=== PATIENT | male | born 1950 | race Caucasian/White ===

== ENCOUNTER 2020-12-25 18:27 | Inpatient (IN) | payer MEDICARE, SELFPAY ==
--- NOTE | ~2020-12-25 | CT_ITS ---
EXAMINATION: CT ABDOMEN AND PELVIS WITH CONTRAST CLINICAL INFORMATION: Abdomen pain. History of diverticulitis COMPARISON: None TECHNIQUE: Multidetector volumetric images were obtained from the superior aspect of the liver through the pubic symphysis following administration 85 mL of Omnipaque 350 intravenous contrast. Sagittal and coronal reformatted images were obtained on the technologist's workstation. Oral contrast: No This CT examination was performed using dose optimization techniques as appropriate, variously including the following: *Automated exposure control *Adjustment of mA and/or kV according to patient size (this includes techniques or standardized protocols for targeted exams where dose is matched to indication/reason for exam; i.e. extremities or head) *Use of iterative reconstruction technique DLP: 912 mGy-cm FINDINGS: LUNG BASES: There is some partially calcified left pleural plaque. Small amount of nonspecific pericardial fluid or thickening. There is coronary calcification. LIVER, GALLBLADDER, AND BILIARY TREE: No suspicious abnormality in the liver. There is no opaque gallstone. There is no biliary dilation. PANCREAS: Some fatty replacement. No suspicious mass SPLEEN: Within normal limits ADRENAL GLANDS: No suspicious abnormality KIDNEYS AND URETERS: Limited by motion. No definite dilation of the urinary collecting system. There are at least 3 small cysts in the right kidney which do not require further evaluation. There is an exophytic 7.5 cm cyst arising from the ventral left kidney. There is trace calcification along the upper wall. Bosniak 2F. BLADDER: There is a balloon catheter present. The bladder wall is thickened. GASTROINTESTINAL TRACT: There is a large amount of fecal residue distending the rectum. The rectal wall is thickened. There is perirectal fat stranding. This could reflect stercoral colitis. There is extensive semisolid material within the distal colon. There are some colonic diverticula. There is fluid throughout the colon which suggests dysfunction. There is no definite CT evidence of acute diverticulitis. The appendix is normal. There is no significant small bowel dilation. The stomach is distended. ABDOMINAL WALL: No significant hernia is appreciated. LYMPH NODES: There are no measurably enlarged abdominal or pelvic lymph nodes. There is no free intraperitoneal fluid. There is no pneumoperitoneum. VASCULAR: There is no abdominal aortic aneurysm. There is extensive atherosclerosis. There is at least moderate narrowing of the SMA. The portal vein enhances. Plaque near the origin of the right renal artery. PELVIC VISCERA: There is a coarse calcification near the bladder outlet. Difficult to determine if this is within the prostate or the bladder. I favor the former. OSSEOUS STRUCTURES: Marked osteopenia. Rigid spine with ankylosis in the visualized lower thoracic region. There is proliferative change of the ventral aspect at T12/L1 with some gas ventrally. CT/CT abdomen pelvis w con IMPRESSION: A fecal bolus distends the rectum and the rectal wall is thickened and there is some perirectal fat stranding. This could be related to stercoral colitis. No definite specific evidence of acute diverticulitis or abscess. 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 Bosniak 2F left renal cyst. This does not require any further evaluation. Calcification near the bladder outlet may be within the prostate.
[2020-12-25 18:40] VITALS: BMI 22.4
--- NOTE | 2020-12-25 18:42 | ED_ITS ---
HPI - Abdominal Pain General Chief Complaint: Abdominal Pain Stated Complaint: abd pain Time Seen by Provider: 12/25/20 18:42 Source: patient and EMS Mode of arrival: EMS Limitations: no limitations History of Present Illness HPI narrative: 70 yo male with hx of afib on AC therapy, indwelling grimes, ataxia, HTN, HLD, hx of diverticulitis c/o abdominal pain and constipation for the last 3 days at this time denies vomiting and diarrhea, no fevers at SNF reported, hematuria noted in grimes bag elicited complaint: abdominal pain Pertinent past history: diverticulitis Onset (ago): day(s) (3) Pain Consistency: constant Location: diffuse Severity: moderate Quality: cramping and aching Radiation: none Migration to: no migration Exacerbating factors: movement Relieving factors: nothing Context: history of similar episodes Associated symptoms: nausea and constipation Related Data Allergies Allergy/AdvReac Type Severity Reaction Status Date / Time erythromycin base Allergy Unknown Unknown Verified 12/25/20 18:51 lisinopril Allergy Unknown Unknown Verified 12/25/20 18:51 Review of Systems Review of Systems Constitutional : No Weight loss, No Fever, pos Chills ENT/Mouth : No sore throat, No Rhinorrhea Eyes: No Swelling, No Redness Cardiovascular : No Chest Pain, No SOB, NoEdema Respiratory : No Cough, No Sputum, No Wheezing Gastrointestinal : Positive Nausea, no Vomiting, no Diarrhea, positive abdominal Pain, No Hematochezia, No Melena Genitourinary : No Dysuria, No Urinary Frequency, pos Hematuria, No Urgency Musculoskeletal : No joint pain, No Myalgias, No Joint Swelling Skin : No Skin Lesions, No rash Neuro : No Weakness, No Numbness, No Dizziness, No Headache Psych : No Anxiety/Panic, No Depression Heme/Lymph: No Bruising, No Lymphadenopathy Endocrine : No Polyuria, No Polydipsia All other systems reviewed and are negative. Physical Exam Vital Signs: Vital Signs: Last Vital Signs Temp 98.4 F 12/25/20 21:29 Pulse 91 12/25/20 21:29 Resp 18 12/25/20 21:29 BP 123/78 12/25/20 21:29 Pulse Ox 100 12/25/20 21:29 Body Mass Index 22.4 Appearance: Alert. Oriented X3. No acute distress. Anxious Eyes: Pupils equal, round and reactive to light. ENT: Pharynx normal. Neck: Normal inspection. Neck supple. CVS: Normal heart rate and rhythm. Pulses normal. Respiratory: No respiratory distress. Breath sounds normal. Abdomen: Soft and moderate lower abdominal ttp no rebound or guarding Rectal: brown stool, soft impaction : hematuria in cath bag Skin: Skin warm and dry. Normal skin color. Normal skin turgor. Extremities: No lower extremity edema. No calf ttp Neuro: Oriented X 3. No motor deficit. No sensory deficit. Course Course Course Narrative: 2500 cc bolus ordered for lactic acidosis, empiric zosyn ordered as well lactic acid cleared, repeat dilaudid for pain, discussion with Dr. Schneider she is aware, plan to admit at this time Dr. Schneider aware will follow along MDM - Abdominal Pain MDM Narrative Medical decision making narrative: 70 yo female with hx of diverticulitis, chronic grimes, here with lower abdominal pain and constipation likely impaction at this time will need labs, cultures, lactic acid, CT scan for obstruction/dive rticulitis dispo per results and findings. Differential Diagnosis Differential diagnosis: Likely abdominal pain, constipation, diverticulitis, renal colic and small bowel obstruction Lab Data Result diagrams: 12/25/20 19:15 12/25/20 19:15 Labs: Lab Results 12/25/20 12/25/20 12/25/20 Range/Units 19:15 19:15 19:15 WBC 13.4 H (4.8-10.8) X10*3/uL RBC 5.07 (4.60-5.80) X10*6/uL Hgb 16.0 (14.0-18.0) g/dl Hct 47.1 (42-52) % MCV 92.9 (80-98) fL MCH 31.6 (27.0-33.0) pg MCHC 34.0 (31.0-36.0) g/dl RDW 12.9 (11.0-16.0) % Plt Count 312 (160-400) X10*3/uL MPV 8.8 L (9.4-12.4) fL Immature Gran % (Auto) 0.3 (0.0-0.4) % Neut % (Auto) 67.1 (45-73) % Lymph % (Auto) 24.1 (20-40) % [place] % (Auto) 7.1 (2-11) % Eos % (Auto) 1.0 (0-4) % Baso % (Auto) 0.4 (0-2) % Lymph # (Auto) 3.2 (1.2-4.9) X10*3/uL [place] # (Auto) 1.0 (0.1-1.2) X10*3/uL Eos # (Auto) 0.1 (0.0-0.4) X10*3/uL Baso # (Auto) 0.1 (0.0-0.2) X10*3/uL Abs Immat Gran (auto) 0.04 H (0.00-0.03) X10*3/uL Absolute Neuts (auto) 9.0 H (2.0-8.3) X10*3/uL Absolute Nucleated RBC 0.000 (0.0-0.012) X10*3/uL Nucleated RBC % (auto) 0.0 (0.0-0.2) /100WBC PT (10.8-13.0) SEC INR (0.9-1.1) APTT (24.1-38.0) SEC Sodium 144 (135-145) mmol/L Potassium 4.7 (3.3-5.1) mmol/L Chloride 106 (96-108) mmol/L Carbon Dioxide 22 (22-29) mmol/L Anion Gap 21 H (12-20) BUN 6 L (9-16) mg/dL Creatinine 0.98 (0.5-1.4) mg/dL Estim Creat Clear Calc 77.5 Estimated GFR > 60 Random Glucose 136 H (60-115) mg/dL Lactic Acid (0.5-2.0) mmol/L Lactic Acid Fup @ 2Hr (0.5-2.0) mmol/L Calcium 11.6 H (8.4-10.2) mg/dL Magnesium (1.6-2.6) mg/dL Total Bilirubin (0.0-1.0) mg/dL Direct Bilirubin (0.0-0.5) mg/dL AST (5-37) U/L ALT (0-40) U/L Alkaline Phosphatase (39-117) U/L Troponin I High Sens (<3.5-35.0) ng/L Total Protein (6.5-8.0) g/dL Albumin (3.5-5.0) g/dL Lipase (8-78) U/L Urine Color Urine Appearance Urine pH (5.0-8.0) Ur Specific [place] (1.005-1.025) Urine Protein (NEG-TRACE) MG/DL Urine Glucose (UA) (NEG) MG/DL Urine Ketones (NEG) MG/DL Urine Blood (NEG) Urine Nitrite (NEG) Ur Leukocyte Esterase (NEG) Urine RBC (0) /HPF Urine WBC (0-4) /HPF Ur Squamous Epith Cells /LPF Calcium Oxalate Crystal /LPF Triple Phos Crystals /LPF Amorphous Sediment /LPF Urine Bacteria /LPF COVID-19 ([facility]) Negative (Negative) COVID-19 Clin Com See Note 12/25/20 12/25/20 12/25/20 Range/Units 19:15 19:15 19:15 WBC (4.8-10.8) X10*3/uL RBC (4.60-5.80) X10*6/uL Hgb (14.0-18.0) g/dl Hct (42-52) % MCV (80-98) fL MCH (27.0-33.0) pg MCHC (31.0-36.0) g/dl RDW (11.0-16.0) % Plt Count (160-400) X10*3/uL MPV (9.4-12.4) fL Immature Gran % (Auto) (0.0-0.4) % Neut % (Auto) (45-73) % Lymph % (Auto) (20-40) % [place] % (Auto) (2-11) % Eos % (Auto) (0-4) % Baso % (Auto) (0-2) % Lymph # (Auto) (1.2-4.9) X10*3/uL [place] # (Auto) (0.1-1.2) X10*3/uL Eos # (Auto) (0.0-0.4) X10*3/uL Baso # (Auto) (0.0-0.2) X10*3/uL Abs Immat Gran (auto) (0.00-0.03) X10*3/uL Absolute Neuts (auto) (2.0-8.3) X10*3/uL Absolute Nucleated RBC (0.0-0.012) X10*3/uL Nucleated RBC % (auto) (0.0-0.2) /100WBC PT 17.3 H (10.8-13.0) SEC INR 1.5 H (0.9-1.1) APTT 45.3 H (24.1-38.0) SEC Sodium (135-145) mmol/L Potassium (3.3-5.1) mmol/L Chloride (96-108) mmol/L Carbon Dioxide (22-29) mmol/L Anion Gap (12-20) BUN (9-16) mg/dL Creatinine (0.5-1.4) mg/dL Estim Creat Clear Calc Estimated GFR Random Glucose (60-115) mg/dL Lactic Acid 7.8 H* (0.5-2.0) mmol/L Lactic Acid Fup @ 2Hr (0.5-2.0) mmol/L Calcium (8.4-10.2) mg/dL Magnesium 2.7 H (1.6-2.6) mg/dL Total Bilirubin 0.9 (0.0-1.0) mg/dL Direct Bilirubin 0.3 (0.0-0.5) mg/dL AST 44 H (5-37) U/L ALT 31 (0-40) U/L Alkaline Phosphatase 147 H (39-117) U/L Troponin I High Sens (<3.5-35.0) ng/L Total Protein 7.4 (6.5-8.0) g/dL Albumin 4.1 (3.5-5.0) g/dL Lipase 24 (8-78) U/L Urine Color Urine Appearance Urine pH (5.0-8.0) Ur Specific [place] (1.005-1.025) Urine Protein (NEG-TRACE) MG/DL Urine Glucose (UA) (NEG) MG/DL Urine Ketones (NEG) MG/DL Urine Blood (NEG) Urine Nitrite (NEG) Ur Leukocyte Esterase (NEG) Urine RBC (0) /HPF Urine WBC (0-4) /HPF Ur Squamous Epith Cells /LPF Calcium Oxalate Crystal /LPF Triple Phos Crystals /LPF Amorphous Sediment /LPF Urine Bacteria /LPF COVID-19 ([facility]) (Negative) COVID-19 Clin Com 12/25/20 12/25/20 12/25/20 Range/Units 19:15 19:15 21:54 WBC (4.8-10.8) X10*3/uL RBC (4.60-5.80) X10*6/uL Hgb (14.0-18.0) g/dl Hct (42-52) % MCV (80-98) fL MCH (27.0-33.0) pg MCHC (31.0-36.0) g/dl RDW (11.0-16.0) % Plt Count (160-400) X10*3/uL MPV (9.4-12.4) fL Immature Gran % (Auto) (0.0-0.4) % Neut % (Auto) (45-73) % Lymph % (Auto) (20-40) % [place] % (Auto) (2-11) % Eos % (Auto) (0-4) % Baso % (Auto) (0-2) % Lymph # (Auto) (1.2-4.9) X10*3/uL [place] # (Auto) (0.1-1.2) X10*3/uL Eos # (Auto) (0.0-0.4) X10*3/uL Baso # (Auto) (0.0-0.2) X10*3/uL Abs Immat Gran (auto) (0.00-0.03) X10*3/uL Absolute Neuts (auto) (2.0-8.3) X10*3/uL Absolute Nucleated RBC (0.0-0.012) X10*3/uL Nucleated RBC % (auto) (0.0-0.2) /100WBC PT (10.8-13.0) SEC INR (0.9-1.1) APTT (24.1-38.0) SEC Sodium (135-145) mmol/L Potassium (3.3-5.1) mmol/L Chloride (96-108) mmol/L Carbon Dioxide (22-29) mmol/L Anion Gap (12-20) BUN (9-16) mg/dL Creatinine (0.5-1.4) mg/dL Estim Creat Clear Calc Estimated GFR Random Glucose (60-115) mg/dL Lactic Acid (0.5-2.0) mmol/L Lactic Acid Fup @ 2Hr 1.4 (0.5-2.0) mmol/L Calcium (8.4-10.2) mg/dL Magnesium (1.6-2.6) mg/dL Total Bilirubin (0.0-1.0) mg/dL Direct Bilirubin (0.0-0.5) mg/dL AST (5-37) U/L ALT (0-40) U/L Alkaline Phosphatase (39-117) U/L Troponin I High Sens 7.7 (<3.5-35.0) ng/L Total Protein (6.5-8.0) g/dL Albumin (3.5-5.0) g/dL Lipase (8-78) U/L Urine Color RED Urine Appearance TURBID Urine pH 8.5 H (5.0-8.0) Ur Specific [place] 1.015 (1.005-1.025) Urine Protein 2+ H (NEG-TRACE) MG/DL Urine Glucose (UA) NEG (NEG) MG/DL Urine Ketones NEG (NEG) MG/DL Urine Blood 3+ H (NEG) Urine Nitrite NEG (NEG) Ur Leukocyte Esterase NEG (NEG) Urine RBC TNTC H (0) /HPF Urine WBC 1-4 (0-4) /HPF Ur Squamous Epith Cells TRACE /LPF Calcium Oxalate Crystal 1+ /LPF Triple Phos Crystals TRACE /LPF Amorphous Sediment 1+ /LPF Urine Bacteria TRACE /LPF COVID-19 ([facility]) (Negative) COVID-19 Clin Com ECG Data Attestation: I personally reviewed and interpreted this ECG as follows: ECG interpretation date: 12/25/20 ECG interpretation time: 20:06 Interpretation: Rate: 107 Rhythm: sinus tachycardia [place]: left Normal P waves. Normal LYDIA. Normal QRS complex. ST T wave : nonspecific. slight ST depression V4-V6 qTC: normal prior studies: none The study has been interpreted contemporaneously by me. . Discharge Plan Discharge Clinical Impression: Fecal impaction in rectum, Colitis, Acidosis, lactic Abdominal pain Qualifiers: Abdominal location: generalized Qualified Code(s): R10.84 - Generalized abdomin al pain Constipation Qualifiers: Constipation type: other constipation type Qualified Code(s): K59.09 - Other constipation Patient Disposition: Admitted As Inpatient [facility] Past Medical History Attestation statement: The following information was validated with the patient. Source: old records reviewed Medical History Afib Chronic indwelling Grimes catheter Diverticulitis Esophagitis Falls Migraine Weakness Social History Social History Alcohol intake: former Smoking Status: Former smoker Use of substances other than those prescribed or required for medical reasons: No Advance Directives: No Advance Directives Information Provided: No
[2020-12-25 18:50] VITALS: BP 122/83; PULSE 112; RESP 16; TEMP 37.7; O2SAT 98
--- NOTE | 2020-12-25 18:52 | ECG_ITS ---
Test Reason : ABD PAIN Blood Pressure : / mmHG Vent. Rate : 107 BPM Atrial Rate : 107 BPM P-R Int : 170 ms QRS Dur : 090 ms QT Int : 356 ms P-R-T Axes : 061 -60 104 degrees QTc Int : 475 ms Sinus tachycardia Left axis deviation ST & T wave abnormality, consider inferior ischemia Abnormal ECG No previous ECGs available Referred By: Fiorella Rogers Electronically Signed By:CINTHIA MERRILL MD
[2020-12-25 19:23] LABS: MANUAL DIFF FLAG NO
[2020-12-25] MEDS: Acetaminophen 325 MG TABLET 650 MG PO (19:25)
[2020-12-25 19:26] LABS: Basophils Absolute Auto 0.1 X10*3/uL (0.0-0.2); Basophils Percent Auto 0.4 % (0-2); Eosinophils Absolute Auto 0.1 X10*3/uL (0.0-0.4); Hematocrit 47.1 % (42-52); Imm Gran Abs Auto 0.04 X10*3/uL (0.00-0.03); Imm Gran Pct Auto 0.3 % (0.0-0.4); Lymphocytes Absolute Auto 3.2 X10*3/uL (1.2-4.9); Lymphocytes Percent Auto 24.1 % (20-40); Mean Corpuscular Hemoglobin 31.6 pg (27.0-33.0); Mean Corpuscular Volume 92.9 fL (80-98); Mean Platelet Volume 8.8 fL (9.4-12.4); Monocytes Percent Auto 7.1 % (2-11); Neutrophils Percent Auto 67.1 % (45-73); Platelet Count 312 X10*3/uL (160-400); Red Blood Count 5.07 X10*6/uL (4.60-5.80); Red Cell Distribution Width 12.9 % (11.0-16.0); White Blood Count 13.4 X10*3/uL (4.8-10.8)
[2020-12-25] MEDS: 0.9 % Sodium Chloride 500 ML IV (19:26)
[2020-12-25] MEDS: ondansetron HCL 4 MG/2 ML VIAL IVPUSH (19:26)
[2020-12-25 19:30] LABS: INTERNATIONAL NORM RATIO 1.5 (0.9-1.1); Prothrombin Time 17.3 SEC (10.8-13.0)
[2020-12-25 19:44] LABS: Partial Thromboplastin Time 45.3 SEC (24.1-38.0)
[2020-12-25 19:51] LABS: Alanine Aminotransferase 31 U/L (0-40); Albumin Level 4.1 g/dL (3.5-5.0); Alkaline Phosphatase 147 U/L (39-117); Aspartate Amino Transferase 44 U/L (5-37); Bilirubin Direct 0.3 mg/dL (0.0-0.5); Bilirubin Total 0.9 mg/dL (0.0-1.0); Lipase 24 U/L (8-78); Magnesium 2.7 mg/dL (1.6-2.6); Total Protein 7.4 g/dL (6.5-8.0)
[2020-12-25 19:59] LABS: Anion Gap 21 (12-20); Blood Urea Nitrogen 6 mg/dL (9-16); Carbon Dioxide 22 mmol/L (22-29); Chloride 106 mmol/L (96-108); Creatinine Clr Calc Pharmacy 77.5; Estimated Glomerular Filt Rate > 60; Glucose Random 136 mg/dL (60-115); Potassium 4.7 mmol/L (3.3-5.1); Sodium 144 mmol/L (135-145)
[2020-12-25 20:01] LABS: Glucose Urine UA NEG (NEG); Leukocyte Esterase Urine NEG (NEG); Nitrite Urine NEG (NEG); PH 8.5 (5.0-8.0); Specific Gravity - Urine 1.015 (1.005-1.025); Urine Blood 3+ (NEG); Urine Ketones NEG (NEG)
[2020-12-25 20:03] LABS: Appearance Urine TURBID; Color Urine RED; Lactic Acid 7.8 mmol/L (0.5-2.0); Urine Protein 2+ MG/DL (NEG-TRACE)
[2020-12-25 20:04] LABS: Amorphous Sediment Urine 1+ /LPF; Bacteria Urine TRACE /LPF; Calcium Oxalate Crystals Urine 1+ /LPF; RBC Urine TNTC /HPF (0); Squamous Epithelial Cell Urine TRACE /LPF; Triple Phosphate Crystal Urine TRACE /LPF
[2020-12-25 20:06] LABS: Calcium 11.6 mg/dL (8.4-10.2)
[2020-12-25] MEDS: 0.9 % Sodium Chloride 1,000 ML 999 ML IVCONT ×2 (20:15)
[2020-12-25] MEDS: Piperacillin Sodium/Tazobactam 3.375 GM in 0.9 % Sodium Chloride 50 ML IV (20:15)
[2020-12-25] MEDS: Morphine Sulfate 2 MG/ML CARTRIDGE IVPUSH (20:15)
[2020-12-25 20:18] VITALS: BP 116/69; PULSE 99; RESP 16; TEMP 36.8; O2SAT 100
[2020-12-25 20:40] LABS: Troponin-I High Sensitivity 7.7 ng/L (<3.5-35.0)
[2020-12-25 20:42] LABS: COVID-19 Test Negative (Negative)
[2020-12-25 21:21] LABS: Reflex Lactate? Lactic Acid Added
[2020-12-25] MEDS: iohexoL 350 MG/ML 100 ML INFUS..BTL 85 ML IV (21:27)
[2020-12-25 21:29] VITALS: BP 123/78; PULSE 91; RESP 18; TEMP 36.9; O2SAT 100
[2020-12-25] MEDS: HYDROmorphone HCl 0.5 MG/0.5 ML SYRINGE IVPUSH (21:52)
[2020-12-25 22:21] LABS: ~Lactic Acid-LAB USE ONLY 1.4 mmol/L (0.5-2.0)
--- NOTE | 2020-12-25 23:53 | PM.IMHP ---
History of Present Illness Date of Service: 12/25/20 Chief Complaint: constipation, GI pain 70 yo with pmhx AFib, diverticulitis, chronic indwelling Grimes catheter secondary to urinary retention, peripheral neuropathy who presents to the hospital with constipation. Patient's at bedside who helped with given history. Patient reports that he started having abdominal pain, diffuse, worse on the left side, and reports tana the has not had a proper BM since the 20 of December. according to the pts , pt was admitted to [facility] for about 15 days for diverticulitis with resp complications. according to the , pt has chronic urinary retention for the past 1 month, he was trying strain today to push his bm, and started seeing blood in the grimes. pt is having chronic SOB, with no cough, no sputum production. he has no fever, no chills, no chest pain, no palpitations, he has nausea with no vomiting, no lower extremity edema. pt not on any narcotics although according to med rec patient is on Percocet Of note [facility] from [facility] because he has been there for 2 months due to peripheral neuropathy, difficulty ambulating as a result and weakness. On arrival to the ED patient hemodynamically stable with no significant abnormal vitals except for heart rate of 112 which normalized Labs are significant for WBC count of 13.4, CT of the brain 3, INR of 1.5, PTT of 45.3, BUN of 6, creatinine of 0.98, lactic acid of 7.8, which improved to 1.4 after fluids, magnesium 2.7, calcium of 11.6, AST of 44, ALT of 31, alk-phos of 147, UA that is positive for blood, Abdomen CT shows a fecal bolus that distends the rectum and the rectal wall that is thickened with some perirectal fat stranding. Possible stercoral colitis. No acute diverticulitis or abscess. Past medical history as below and confirmed as patient Review of Systems Review of Systems: Yes all other systems are reviewed and are negative FOR[facility]LY [facility], [facility] Medical History Afib Chronic indwelling Grimes catheter Diverticulitis Esophagitis [place] Migraine Weakness Social History Household Members: Spouse Housing: Unknown / Unable to assess Unable to assess alcohol history related to: Unable to respond Alcohol intake: former Smoking Status: Former smoker Use of substances other than those prescribed or required for medical reasons: Unknown Advance Directives: No Advance Directives Information Provided: No Do you have thoughts of harming others: None Do you have a plan to hurt others: No Plan Recently lost weight without trying: Unsure Nutrition Risks: No Nutritional Risk Poor oral hygiene: No Meds Allergies Allergy/AdvReac Type Severity Reaction Status Date / Time erythromycin base Allergy Unknown Unknown Verified 12/25/20 18:51 lisinopril Allergy Unknown Unknown Verified 12/25/20 18:51 Active Medications: Current Medications Generic Name Dose Route Start Last Admin Trade Name Freq PRN Reason Stop Dose Admin Pharmacy Consult 1 each 12/25/20 18:51 Consult Rx Perform Med Rec MISCELLANE ONCE PRN Consult order Home Medications Medication Instructions Recorded Confirmed Last Taken Type amlodipine 1 tab PO DAILY 12/26/20 12/26/20 Unknown History apixaban [Eliquis] 1 tab PO BID 12/26/20 12/26/20 Unknown History cyclobenzaprine 1 tab PO BEDTIME 12/26/20 12/26/20 Unknown History duloxetine 1 cap PO DAILY 12/26/20 12/26/20 Unknown History gabapentin 1 cap PO DAILY 12/26/20 12/26/20 Unknown History hydrochlorothiazide 1 cap PO DAILY 12/26/20 12/26/20 Unknown History oxycodone-acetaminophen 1 tab PO NEEDED 12/26/20 12/26/20 Unknown History ropinirole 1 tab PO BEDTIME 12/26/20 12/26/20 Unknown History simvastatin 1 tab PO BEDTIME 12/26/20 12/26/20 Unknown History sumatriptan succinate 1 tab PO DAILY 12/26/20 12/26/20 Unknown History Physical Exam Vital Signs and Narrative: Vital Signs: Last Vital Signs Temp 98.4 F 12/25/20 21:29 Pulse 91 12/25/20 21:29 Resp 18 12/25/20 21:29 BP 123/78 12/25/20 21:29 Pulse Ox 100 12/25/20 21:29 Body Mass Index 22.4 Const: General: cooperative, no acute distress and tired appearing Orientation/consciousness: patient oriented x3 Eyes: General: appearance normal, both eyes and all related structures Resp: Effort & Inspection: normal respiratory effort and able to speak in complete sentences Cardio: Rate: regular rate Rhythm: regular rhythm GI: Palpation (GI): Soft to palpation Auscultation: normal bowel sounds Skin: General skin exam: no rashes or lesions noted Neuro: General: patient oriented x3 Cognition (Neuro): normal cognition Extrem: General: Yes normal to inspection and Yes no pedal edema Results Labs CBC and Chem 7: 12/25/20 19:15 12/25/20 19:15 Labs: Laboratory Results - last 24 hr 12/25/20 12/25/20 12/25/20 19:15 19:15 19:15 MCV 92.9 MCH 31.6 MCHC 34.0 RDW 12.9 Plt Count 312 MPV 8.8 L Immature Gran % (Auto) 0.3 Neut % (Auto) 67.1 Lymph % (Auto) 24.1 [place] % (Auto) 7.1 Eos % (Auto) 1.0 Baso % (Auto) 0.4 Lymph # (Auto) 3.2 [place] # (Auto) 1.0 Eos # (Auto) 0.1 Baso # (Auto) 0.1 Abs Immat Gran (auto) 0.04 H Absolute Neuts (auto) 9.0 H Absolute Nucleated RBC 0.000 Nucleated RBC % (auto) 0.0 PT INR APTT Anion Gap 21 H Estim Creat Clear Calc 77.5 Estimated GFR > 60 Random Glucose 136 H Lactic Acid Lactic Acid Fup @ 2Hr Calcium 11.6 H Magnesium Total Bilirubin Direct Bilirubin AST ALT Alkaline Phosphatase Troponin I High Sens Total Protein Albumin Lipase Urine Color Urine Appearance Urine pH Ur Specific [place] Urine Protein Urine Glucose (UA) Urine Ketones Urine Blood Urine Nitrite Ur Leukocyte Esterase Urine RBC Urine WBC Ur Squamous Epith Cells Calcium Oxalate Crystal Triple Phos Crystals Amorphous Sediment Urine Bacteria COVID-19 ([facility]ITA) Negative COVID-19 Clin Com See Note 12/25/20 12/25/20 12/25/20 19:15 19:15 19:15 MCV MCH MCHC RDW Plt Count MPV Immature Gran % (Auto) Neut % (Auto) Lymph % (Auto) [place] % (Auto) Eos % (Auto) Baso % (Auto) Lymph # (Auto) [place] # (Auto) Eos # (Auto) Baso # (Auto) Abs Immat Gran (auto) Absolute Neuts (auto) Absolute Nucleated RBC Nucleated RBC % (auto) PT 17.3 H INR 1.5 H APTT 45.3 H Anion Gap Estim Creat Clear Calc Estimated GFR Random Glucose Lactic Acid 7.8 H* Lactic Acid Fup @ 2Hr Calcium Magnesium 2.7 H Total Bilirubin 0.9 Direct Bilirubin 0.3 AST 44 H ALT 31 Alkaline Phosphatase 147 H Troponin I High Sens Total Protein 7.4 Albumin 4.1 Lipase 24 Urine Color Urine Appearance Urine pH Ur Specific [place] Urine Protein Urine Glucose (UA) Urine Ketones Urine Blood Urine Nitrite Ur Leukocyte Esterase Urine RBC Urine WBC Ur Squamous Epith Cells Calcium Oxalate Crystal Triple Phos Crystals Amorphous Sediment Urine Bacteria COVID-19 (TERESITA) COVID-19 Clin Com 12/25/20 12/25/20 12/25/20 19:15 19:15 21:54 MCV MCH MCHC RDW Plt Count MPV Immature Gran % (Auto) Neut % (Auto) Lymph % (Auto) [place] % (Auto) Eos % (Auto) Baso % (Auto) Lymph # (Auto) [place] # (Auto) Eos # (Auto) Baso # (Auto) Abs Immat Gran (auto) Absolute Neuts (auto) Absolute Nucleated RBC Nucleated RBC % (auto) PT INR APTT Anion Gap Estim Creat Clear Calc Estimated GFR Random Glucose Lactic Acid Lactic Acid Fup @ 2Hr 1.4 Calcium Magnesium Total Bilirubin Direct Bilirubin AST ALT Alkaline Phosphatase Troponin I High Sens 7.7 Total Protein Albumin Lipase Urine Color RED Urine Appearance TURBID Urine pH 8.5 H Ur Specific [place] 1.015 Urine Protein 2+ H Urine Glucose (UA) NEG Urine Ketones NEG Urine Blood 3+ H Urine Nitrite NEG Ur Leukocyte Esterase NEG Urine RBC TNTC H Urine WBC 1-4 Ur Squamous Epith Cells TRACE Calcium Oxalate Crystal 1+ Triple Phos Crystals TRACE Amorphous Sediment 1+ Urine Bacteria TRACE COVID-19 ([facility]ITA) COVID-19 Clin Com Imaging Radiologist's Impressions: Impressions Abdomen/Pelvis CT 12/25/20 18:51 IMPRESSION: A fecal bolus distends the rectum and the rectal wall is thickened and there is some perirectal fat stranding. This could be related to stercoral colitis. No definite specific evidence of acute diverticulitis or abscess. 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 Bosniak 2F left renal cyst. This does not require any further evaluation. Calcification near the bladder outlet may be within the prostate. Assessment and Plan (1) Abdominal pain: Qualifiers: Abdominal location: generalized Qualified Code(s): R10.84 - Generalized abdominal pain Status: Acute (2) Constipation: Qualifiers: Constipation type: other constipation type Qualified Code(s): K59.09 - Other constipation Status: Acute (3) Fecal impaction in rectum: Status: Acute (4) Colitis: Status: Acute (5) Acidosis, lactic: Status: Acute 70-year-old male with history of diverticulitis who presents to the hospital with abdominal pain found to have significant constipation and acute colitis # abdominal pain - secondary to significant constipation - will treat with bowel regimen, Fleet enema, MiraLax, milk of magnesia, as well as Colace - consult surgical team # fecal impaction rectum - received Fleet enema in ED - bowel regimen # stercoral colitis - secondary to constipation - bowel regimen # lactic acidosis - no evidence of infection - afebrile, no leukocytosis, chest x-ray negative, UA negative - improved IV fluids - continue IV fluids # hypertension - stable - continue hydrochlorothiazide and amlodipine # hematuria - most likely traumatic - hgb stable - no obstruction - at this time will monitor for resolution - if continues to have hematuria will consult Urology DVT prophylaxis: SCDs in the setting of hematuria, resume eliquis once hematuria resolves
[2020-12-26] MEDS: Sodium Phosphate,Mono-Dibasic 133 ML ENEMA PR (00:36)
[2020-12-26] MEDS: polyethylene glycoL 3350 17 GM POWD.PACK PO ×2 (00:36→09:20)
[2020-12-26 02:22] VITALS: BP 128/81; PULSE 91; RESP 16; TEMP 36.4; O2SAT 100
[2020-12-26] MEDS: 0.9 % Sodium Chloride Flush 3 ML SYRINGE IVFLUSH ×2 (03:46→09:11)
[2020-12-26 04:00] VITALS: BP 130/66; PULSE 91; RESP 16; TEMP 36.3; O2SAT 99
[2020-12-26 07:19] VITALS: BP 122/82; PULSE 96; RESP 20; TEMP 36.6; O2SAT 97
[2020-12-26 08:15] LABS: MANUAL DIFF FLAG NO
[2020-12-26 08:21] LABS: Basophils Absolute Auto 0.1 X10*3/uL (0.0-0.2); Basophils Percent Auto 0.4 % (0-2); Eosinophils Absolute Auto 0.1 X10*3/uL (0.0-0.4); Hematocrit 41.3 % (42-52); Hemoglobin 13.6 g/dl (14.0-18.0); Imm Gran Abs Auto 0.04 X10*3/uL (0.00-0.03); Imm Gran Pct Auto 0.3 % (0.0-0.4); Lymphocytes Absolute Auto 1.7 X10*3/uL (1.2-4.9); Lymphocytes Percent Auto 12.8 % (20-40); Mean Corpuscular HGB Conc 32.9 g/dl (31.0-36.0); Mean Corpuscular Hemoglobin 31.2 pg (27.0-33.0); Mean Corpuscular Volume 94.7 fL (80-98); Mean Platelet Volume 8.9 fL (9.4-12.4); Monocytes Absolute Auto 0.8 X10*3/uL (0.1-1.2); Monocytes Percent Auto 6.1 % (2-11); Neutrophils Absolute Auto 10.4 X10*3/uL (2.0-8.3); Neutrophils Percent Auto 79.4 % (45-73); Platelet Count 248 X10*3/uL (160-400); Red Blood Count 4.36 X10*6/uL (4.60-5.80); Red Cell Distribution Width 13.2 % (11.0-16.0)
[2020-12-26] MEDS: Lactated Ringers 1,000 ML 100 ML IVCONT ×2 (08:43→16:46)
[2020-12-26 08:57] LABS: Anion Gap 10 (12-20); Blood Urea Nitrogen 6 mg/dL (9-16); Carbon Dioxide 25 mmol/L (22-29); Chloride 111 mmol/L (96-108); Estimated Glomerular Filt Rate > 60; Glucose Random 132 mg/dL (60-115); Potassium 3.7 mmol/L (3.3-5.1); Sodium 142 mmol/L (135-145)
[2020-12-26 09:02] LABS: Calcium 9.6 mg/dL (8.4-10.2)
[2020-12-26] MEDS: Milk of Magnesia 30 ML ORAL.SUSP PO (09:20)
[2020-12-26] MEDS: DULoxetine HCl 60 MG CAPSULE.DR PO (09:20)
[2020-12-26] MEDS: hydroCHLOROthiazide 12.5 MG TABLET PO (09:20)
[2020-12-26] MEDS: amLODIPine Besylate 5 MG TABLET PO (09:21)
[2020-12-26] MEDS: Gabapentin 300 MG CAPSULE PO (09:21)
[2020-12-26] MEDS: Docusate Sodium 100 MG CAPSULE PO (09:21)
[2020-12-26 11:07] VITALS: BP 126/68; PULSE 91; RESP 20; TEMP 35.8; O2SAT 96
--- NOTE | 2020-12-26 11:36 | HO.PM.IMPN ---
Subjective Subjective Date of Service: 12/26/20 Interval History: Patient seen and examined at bedside, sleeping in bed comfortably Has had multiple episodes of bowel movements overnight and this morning Loose stools, No abdominal pain, Hematuria improving, no clots No overnight events other than the bowel movements Physical Exam Vital Signs: Vital Signs: Last Vital Signs Temp 96.5 F L 12/26/20 11:07 Pulse 91 12/26/20 11:07 Resp 20 12/26/20 11:07 BP 126/68 12/26/20 11:07 Pulse Ox 96 12/26/20 11:07 Body Mass Index 22.4 Const: General: no acute distress Eyes: General: appearance normal, both eyes and all related structures Resp: Effort & Inspection: normal respiratory effort Cardio: Rhythm: regular rhythm GI: Palpation (GI): Soft to palpation Auscultation: normal bowel sounds Neuro: Cognition (Neuro): normal cognition Extrem: General: Yes normal to inspection and Yes no pedal edema Objective Data Current Medications Generic Name Dose Route Start Last Admin Trade Name Freq PRN Reason Stop Dose Admin Acetaminophen 650 mg 12/26/20 03:33 Acetaminophen 325 Mg Tablet PO Q6H PRN Pain, Mild (Pain Scale 1-3) Amlodipine Besylate 5 mg 12/26/20 09:00 12/26/20 09:21 Amlodipine Besylate 5 Mg Tablet PO 5 mg DAILY REBECCA Administration Protocol Cyclobenzaprine HCl 10 mg 12/26/20 21:00 Cyclobenzaprine Hcl 10 Mg Tablet PO BEDTIME REBECCA Docusate Sodium 100 mg 12/26/20 03:33 12/26/20 09:21 Docusate Sodium 100 Mg Capsule PO 100 mg BID REBECCA Administration Duloxetine HCl 60 mg 12/26/20 09:00 12/26/20 09:20 Duloxetine Hcl 60 Mg Capsule.Dr PO 60 mg DAILY REBECCA Administration Gabapentin 300 mg 12/26/20 09:00 12/26/20 09:21 Gabapentin 300 Mg Capsule PO 300 mg DAILY REBECCA Administration Hydrochlorothiazide 12.5 mg 12/26/20 09:00 12/26/20 09:20 Hydrochlorothiazide 12.5 Mg Tablet PO 12.5 mg DAILY REBECCA Administration Protocol Lactated Ringer's 1,000 mls @ 100 mls/hr 12/26/20 07:45 12/26/20 08:43 Lr IVCONT 100 mls/hr .Q10H REBECCA Administration Magnesium Hydroxide 30 ml 12/26/20 09:00 12/26/20 09:20 Milk Of Magnesia 30 Ml Oral.Susp PO 30 ml DAILY REBECCA Administration Ondansetron HCl 4 mg 12/26/20 03:33 Ondansetron Hcl 4 Mg/2 Ml Vial IVPUSH Q8H PRN Nausea and Vomiting Pharmacy Consult 1 each 12/25/20 18:51 Consult Rx Perform Med Rec MISCELLANE ONCE PRN Consult order Polyethylene Glycol 17 gm 12/25/20 23:55 12/26/20 09:20 Polyethylene Glycol 3350 17 Gm Powd.Pack PO 17 gm DAILY REBECCA Administration Ropinirole HCl 0.25 mg 12/26/20 21:00 Ropinirole Hcl 0.25 Mg Tablet PO BEDTIME REBECCA Sodium Chloride 3 ml 12/26/20 03:33 12/26/20 09:11 0.9 % Sodium Chloride Flush 3 Ml Syringe IVFLUSH 3 ml QSHIFT REBECCA Administration Sumatriptan Succinate 50 mg 12/26/20 09:00 12/26/20 09:27 Sumatriptan Succinate 50 Mg Tablet PO Not Given DAILY REBECCA Labs CBC & Chem 7: 12/26/20 07:57 12/26/20 07:57 Assessment and Plan (1) Constipation: Status: Acute (2) Fecal impaction in rectum: Status: Acute (3) Colitis: Status: Acute (4) Acidosis, lactic: Status: Acute (5) Abdominal pain: Status: Acute Assessment and Plan: 70-year-old male with history of diverticulitis who presents to the hospital with abdominal pain found to have significant constipation and acute colitis # abdominal pain - improving - secondary to significant constipation - has had multiple bowel movements overnight, and this morning, and currently is having diarrhea - monitor for any worsening pain # fecal impaction rectum - resolved - received Fleet enema in ED, milk of magnesia, Colace, MiraLax - has had multiple episodes of diarrhea - will stop the milk of magnesia, Colace, and switch MiraLax to p.r.n. for constipation # stercoral colitis - leukocytosis improving - has had bowel movement - monitor - continue IV fluids # lactic acidosis- resolved - no evidence of infection - continue IV fluids # hypertension - stable - continue hydrochlorothiazide and amlodipine # hematuria - most likely traumatic - resolving - hgb stable - no obstruction - at bedside requesting urology consult is patient has been having urinary tension for 2 months with no explanation # atrial fibrillation - continue apixaban given the improvement in his hematuria DVT prophylaxis: Apixaban
--- NOTE | 2020-12-26 13:02 | P.CONGS_ITS ---
History of Present Illness Consult details Consult date: 12/26/20 Reason for consult: abdominal pain Narrative: This is a 70-year-old male who was brought to the emergency room [facility] last night because of a 3 day history of abdominal pain and constipation. Today, the patient is very sleepy. He is arousable and will answer some questions but not others. Workup in the emergency room included a CT scan of the abdomen and pelvis that was consistent with constipation and demonstrated some thickening of the rectosigmoid. Lactic acid level initially was 7 but declined to normal while in the emergency department. White blood count was elevated at 13.4. I was not able to obtain any clear history from the patient, though he did repor t a past history of surgery for diverticulitis. He has been in a [facility] facility recently because of weakness according to the record. He has an indwelling Castellanos catheter and apparently was noted to have some blood in his urine prior to transfer to the emergency department. The record indicates that he has had several loose stools since the time of admission, though he did not report this himself.. Currently, he denies abdominal pain. Review of Systems Review of Systems: Yes Unobtainable due to mental status PMFSH Past Medical History Medical History Afib Chronic indwelling Castellanos catheter Diverticulitis Esophagitis Falls Migraine Weakness Surgical History Surgical History (Updated 12/26/20 @ 13:08 by Erna Schneider MD) History of partial colectomy Social History Social History Household Members: Spouse Housing: Unknown / Unable to assess Unable to assess alcohol history related to: Unable to respond Alcohol intake: former Smoking Status: Former smoker Use of substances other than those prescribed or required for medical reasons: Unknown Advance Directives: No Advance Directives Information Provided: No Do you have thoughts of harming others: None Do you have a plan to hurt others: No Plan Recently lost weight without trying: Unsure Nutrition Risks: No Nutritional Risk Poor oral hygiene: No Meds Allergies Allergy/AdvReac Type Severity Reaction Status Date / Time erythromycin base Allergy Unknown Unknown Verified 12/25/20 18:51 lisinopril Allergy Unknown Unknown Verified 12/25/20 18:51 Active Medications: Current Medications Generic Name Dose Route Start Last Admin Trade Name Richardsonq PRN Reason Stop Dose Admin Acetaminophen 650 mg 12/26/20 03:33 Acetaminophen 325 Mg Tablet PO Q6H PRN Pain, Mild (Pain Scale 1-3) Amlodipine Besylate 5 mg 12/26/20 09:00 12/26/20 09:21 Amlodipine Besylate 5 Mg Tablet PO 5 mg DAILY REBECCA Administration Protocol Apixaban 5 mg 12/26/20 21:00 Apixaban 5 Mg Tablet PO BID REBECCA Cyclobenzaprine HCl 10 mg 12/26/20 21:00 Cyclobenzaprine Hcl 10 Mg Tablet PO BEDTIME REBECCA Duloxetine HCl 60 mg 12/26/20 09:00 12/26/20 09:20 Duloxetine Hcl 60 Mg Capsule.Dr PO 60 mg DAILY REBECCA Administration Gabapentin 300 mg 12/26/20 09:00 12/26/20 09:21 Gabapentin 300 Mg Capsule PO 300 mg DAILY REBECCA Administration Hydrochlorothiazide 12.5 mg 12/26/20 09:00 12/26/20 09:20 Hydrochlorothiazide 12.5 Mg Tablet PO 12.5 mg DAILY REBECCA Administration Protocol Lactated Ringer's 1,000 mls @ 100 mls/hr 12/26/20 07:45 12/26/20 08:43 Lr IVCONT 100 mls/hr .Q10H REBECCA Administration Lidocaine 1 patch 12/27/20 09:00 Lidocaine 4 % Patch Adh..Patch TRANSDERMA DAILY [facility] Protocol Ondansetron HCl 4 mg 12/26/20 03:33 Ondansetron Hcl 4 Mg/2 Ml Vial IVPUSH Q8H PRN Nausea and Vomiting Pharmacy Consult 1 each 12/25/20 18:51 Consult Rx Perform Med Rec MISCELLANE ONCE PRN Consult order Polyethylene Glycol 17 gm 12/25/20 23:55 12/26/20 09:20 Polyethylene Glycol 3350 17 Gm Powd.Pack PO 17 gm DAILY REBECCA Administration Polyethylene Glycol 17 gm 12/26/20 11:35 Polyethylene Glycol 3350 17 Gm Powd.Pack PO DAILY PRN Constipation Ropinirole HCl 0.25 mg 12/26/20 21:00 Ropinirole Hcl 0.25 Mg Tablet PO BEDTIME REBECCA Sodium Chloride 3 ml 12/26/20 03:33 12/26/20 09:11 0.9 % Sodium Chloride Flush 3 Ml Syringe IVFLUSH 3 ml QSHIFT REBECCA Administration Sumatriptan Succinate 50 mg 12/26/20 09:00 12/26/20 09:27 Sumatriptan Succinate 50 Mg Tablet PO Not Given DAILY [facility] Home Medications Medication Instructions Recorded Confirmed Last Taken Type amlodipine 1 tab PO DAILY 12/26/20 12/26/20 Unknown History apixaban [Eliquis] 1 tab PO BID 12/26/20 12/26/20 Unknown History cyclobenzaprine 1 tab PO BEDTIME 12/26/20 12/26/20 Unknown History duloxetine 1 cap PO DAILY 12/26/20 12/26/20 Unknown History gabapentin 1 cap PO DAILY 12/26/20 12/26/20 Unknown History hydrochlorothiazide 1 cap PO DAILY 12/26/20 12/26/20 Unknown History oxycodone-acetaminophen 1 tab PO NEEDED 12/26/20 12/26/20 Unknown History ropinirole 1 tab PO BEDTIME 12/26/20 12/26/20 Unknown History simvastatin 1 tab PO BEDTIME 12/26/20 12/26/20 Unknown History sumatriptan succinate 1 tab PO DAILY 12/26/20 12/26/20 Unknown History Physical Exam Vital Signs: Vital Signs: Last Vital Signs Temp 96.5 F L 12/26/20 11:07 Pulse 91 12/26/20 11:07 Resp 20 12/26/20 11:07 BP 126/68 12/26/20 11:07 Pulse Ox 96 12/26/20 11:07 Body Mass Index 22.4 Const: Other: Lethargic, arousable but drifts back to sleep quickly HENMT: Head: Yes normal to inspection Resp: Effort & Inspection: normal respiratory effort Auscultation: clear to auscultation bilaterally Cardio: Rate: regular rate Rhythm: regular rhythm GI: Other: Soft, nontender, nondistended, no palpable masses Rectal Exam - Male: Yes deferred Skin: Other: Normal color, warm and dry Results Labs Result diagrams: 12/26/20 07:57 12/26/20 07:57 Labs: Abnormal lab results 12/25/20 12/25/20 12/25/20 Range/Units 19:15 19:15 19:15 WBC 13.4 H (4.8-10.8) X10*3/uL RBC (4.60-5.80) X10*6/uL Hgb (14.0-18.0) g/dl Hct (42-52) % MPV 8.8 L (9.4-12.4) fL Neut % (Auto) (45-73) % Lymph % (Auto) (20-40) % Abs Immat Gran (auto) 0.04 H (0.00-0.03) X10*3/uL Absolute Neuts (auto) 9.0 H (2.0-8.3) X10*3/uL PT 17.3 H (10.8-13.0) SEC INR 1.5 H (0.9-1.1) APTT 45.3 H (24.1-38.0) SEC Chloride (96-108) mmol/L Anion Gap 21 H (12-20) BUN 6 L (9-16) mg/dL Random Glucose 136 H (60-115) mg/dL Lactic Acid (0.5-2.0) mmol/L Calcium 11.6 H (8.4-10.2) mg/dL Magnesium (1.6-2.6) mg/dL AST (5-37) U/L Alkaline Phosphatase (39-117) U/L Urine pH (5.0-8.0) Urine Protein (NEG-TRACE) MG/DL Urine Blood (NEG) Urine RBC (0) /HPF 12/25/20 12/25/20 12/25/20 Range/Units 19:15 19:15 19:15 WBC (4.8-10.8) X10*3/uL RBC (4.60-5.80) X10*6/uL Hgb (14.0-18.0) g/dl Hct (42-52) % MPV (9.4-12.4) fL Neut % (Auto) (45-73) % Lymph % (Auto) (20-40) % Abs Immat Gran (auto) (0.00-0.03) X10*3/uL Absolute Neuts (auto) (2.0-8.3) X10*3/uL PT (10.8-13.0) SEC INR (0.9-1.1) APTT (24.1-38.0) SEC Chloride (96-108) mmol/L Anion Gap (12-20) BUN (9-16) mg/dL Random Glucose (60-115) mg/dL Lactic Acid 7.8 H* (0.5-2.0) mmol/L Calcium (8.4-10.2) mg/dL Magnesium 2.7 H (1.6-2.6) mg/dL AST 44 H (5-37) U/L Alkaline Phosphatase 147 H (39-117) U/L Urine pH 8.5 H (5.0-8.0) Urine Protein 2+ H (NEG-TRACE) MG/DL Urine Blood 3+ H (NEG) Urine RBC TNTC H (0) /HPF 12/26/20 12/26/20 Range/Units 07:57 07:57 WBC 13.0 H (4.8-10.8) X10*3/uL RBC 4.36 L (4.60-5.80) X10*6/uL Hgb 13.6 L (14.0-18.0) g/dl Hct 41.3 L (42-52) % MPV 8.9 L (9.4-12.4) fL Neut % (Auto) 79.4 H (45-73) % Lymph % (Auto) 12.8 L (20-40) % Abs Immat Gran (auto) 0.04 H (0.00-0.03) X10*3/uL Absolute Neuts (auto) 10.4 H (2.0-8.3) X10*3/uL PT (10.8-13.0) SEC INR (0.9-1.1) APTT (24.1-38.0) SEC Chloride 111 H (96-108) mmol/L Anion Gap 10 L (12-20) BUN 6 L (9-16) mg/dL Random Glucose 132 H (60-115) mg/dL Lactic Acid (0.5-2.0) mmol/L Calcium (8.4-10.2) mg/dL Magnesium (1.6-2.6) mg/dL AST (5-37) U/L Alkaline Phosphatase (39-117) U/L Urine pH (5.0-8.0) Urine Protein (NEG-TRACE) MG/DL Urine Blood (NEG) Urine RBC (0) /HPF Short CBC 12/25/20 12/26/20 Range/Units 19:15 07:57 WBC 13.4 H 13.0 H (4.8-10.8) X10*3/uL Hgb 16.0 13.6 L (14.0-18.0) g/dl Hct 47.1 41.3 L (42-52) % Plt Count 312 248 (160-400) X10*3/uL BMP 12/25/20 12/26/20 19:15 07:57 Sodium 144 142 Potassium 4.7 3.7 D Chloride 106 111 H Carbon Dioxide 22 25 BUN 6 L 6 L Creatinine 0.98 0.76 Calcium 11.6 H 9.6 D Liver Function 12/25/20 Range/Units 19:15 Total Bilirubin 0.9 (0.0-1.0) mg/dL Direct Bilirubin 0.3 (0.0-0.5) mg/dL AST 44 H (5-37) U/L ALT 31 (0-40) U/L Alkaline Phosphatase 147 H (39-117) U/L Albumin 4.1 (3.5-5.0) g/dL Urine 12/25/20 Range/Units 19:15 Urine Color RED Urine Appearance TURBID Urine pH 8.5 H (5.0-8.0) Ur Specific [place] 1.015 (1.005-1.025) Urine Protein 2+ H (NEG-TRACE) MG/DL Urine Glucose (UA) NEG (NEG) MG/DL All other labs normal. Assessment and Plan (1) Constipation: Qualifiers: Constipation type: other constipation type Qualified Code(s): K59.09 - Other constipation Status: Acute (2) Abdominal pain: Qualifiers: Abdominal location: generalized Qualified Code(s): R10.84 - Generalized abdominal pain Status: Acute 70-year-old male admitted for treatment of constipation and abdominal pain. The constipation appears to be resolving. He has passed several loose stools. CT scan reveals evidence of thickening of the rectal wall, possible pro ctitis. No rectal bleeding has been noted. Clear liquid diet has been initiated. Advance as tolerated. He does not appear to have any acute general surgical issues at this time. Please re-consult if needed. Procedures Date of Service Date of Service: 12/26/20
[2020-12-26] MEDS: Acetaminophen 325 MG TABLET 650 MG PO (13:28)
[2020-12-26] MEDS: Lidocaine 4 % Patch ADH..PATCH 1 PATCH TRANSDERMA (13:29)
[2020-12-26 15:27] VITALS: BP 119/70; PULSE 82; RESP 15; TEMP 35.9; O2SAT 100
--- NOTE | 2020-12-26 16:49 | MHC.CM.PN ---
CM ATTEMPTED TO VISIT PT WHO WAS RECEIVING CARE. CM WILL REVISIT
[2020-12-26 19:30] VITALS: BP 124/66; PULSE 72; RESP 16; TEMP 36.3; O2SAT 98
[2020-12-26] MEDS: Cyclobenzaprine HCl 10 MG TABLET PO (21:11)
[2020-12-26] MEDS: rOPINIRole HCL 0.25 MG TABLET PO (21:12)
[2020-12-26] MEDS: Apixaban 5 MG TABLET PO (21:12)
[2020-12-27] VITALS: BP 152/67; PULSE 76; RESP 18; TEMP 36.2; O2SAT 96
[2020-12-27] MEDS: Lactated Ringers 1,000 ML 100 ML IVCONT ×2 (01:47→10:44)
[2020-12-27 04:00] VITALS: BP 148/79; PULSE 69; RESP 18; TEMP 36.7; O2SAT 97
[2020-12-27 07:58] VITALS: BP 124/66; PULSE 79; RESP 19; TEMP 36.7; O2SAT 100
[2020-12-27] MEDS: hydroCHLOROthiazide 12.5 MG TABLET PO (09:26)
[2020-12-27 09:27] VITALS: BP 124/66; PULSE 79
[2020-12-27] MEDS: polyethylene glycoL 3350 17 GM POWD.PACK PO (09:27)
[2020-12-27] MEDS: amLODIPine Besylate 5 MG TABLET PO (09:27)
[2020-12-27] MEDS: Gabapentin 300 MG CAPSULE PO (09:27)
[2020-12-27] MEDS: Apixaban 5 MG TABLET PO (09:27)
[2020-12-27] MEDS: SUMAtriptan succinate 50 MG TABLET PO (09:27)
[2020-12-27] MEDS: DULoxetine HCl 60 MG CAPSULE.DR PO (09:27)
[2020-12-27] MEDS: Lidocaine 4 % Patch ADH..PATCH 1 PATCH TRANSDERMA (09:28)
[2020-12-27] MEDS: Acetaminophen 325 MG TABLET 650 MG PO (09:54)
--- NOTE | 2020-12-27 10:22 | MHC.CM.PN ---
pt is from [facility], dc plan is to return there when medically stable. ref. to [facility] has been made. cm to cont. to follow.
--- NOTE | 2020-12-27 11:02 | P.DS_ITS ---
DS: Providers Provider Date of Service: 12/27/20 <Virginia Jin NP - Last Filed: 12/27/20 16:55> 12/27/20 <Black Pena MD - Last Filed: 12/28/20 08:33> Date of admission: 12/25/20 23:52 <Virginia Jin NP - Last Filed: 12/27/20 16:55> Date of discharge: 12/27/20 <Virginia Jin NP - Last Filed: 12/27/20 16:55> Primary care physician: Tello Philippe MD <Virginia Jin NP - Last Filed: 12/27/20 16:55> Admitting clinician: Naveed Felder <Virginia Jin NP - Last Filed: 12/27/20 16:55> Attending physician on admission: Naveed Felder <Virginia Jin NP - Last Filed: 12/27/20 16:55> Consults: 12/26/20 03:33 Consult to General Surgery Routine Consulting Provider: Erna Schneider Reason for consultation: severe constipation, colitis <Virginia Jin NP - Last Filed: 12/27/20 16:55> Attending physician on discharge: Black Pena <Virginia Jin NP - Last Filed: 12/27/20 16:55> Discharging clinician: Virginia Jin <Virginia Jin NP - Last Filed: 12/27/20 16:55> DS: Diagnosis Discharge Diagnosis (1) Colitis: Status: Acute <Virginia Jin NP - Last Filed: 12/27/20 16:55> (2) Acidosis, lactic: Status: Acute <Virginia Jin NP - Last Filed: 12/27/20 16:55> DS: Medications Discharge Medications Home Medications: Home Medications Medication Instructions Recorded Confirmed acetaminophen [Acetaminophen Extra 1,000 mg PO Q8-12H PRN 12/26/20 12/26/20 Strength] amlodipine 1 tab PO DAILY 12/26/20 12/26/20 apixaban [Eliquis] 1 tab PO BID 12/26/20 12/26/20 cholecalciferol (vitamin D3) 50 mcg PO DAILY 12/26/20 12/26/20 cyclobenzaprine 1 tab PO BEDTIME 12/26/20 12/26/20 docusate sodium 100 mg PO Q12H PRN 12/26/20 12/26/20 duloxetine 30 mg PO BID 12/26/20 12/26/20 famotidine 20 mg PO BID 12/26/20 12/26/20 folic acid 1 mg PO DAILY 12/26/20 12/26/20 gabapentin 300 mg PO BEDTIME 12/26/20 12/26/20 hydrochlorothiazide 1 cap PO DAILY 12/26/20 12/26/20 lactulose 20 g PO DAILY PRN 12/26/20 12/26/20 magnesium hydroxide [Milk of 30 ml PO DAILY PRN 12/26/20 12/26/20 Magnesia] melatonin 3 mg PO BEDTIME PRN 12/26/20 12/26/20 oxycodone-acetaminophen 1 tab PO NEEDED 12/26/20 12/26/20 polyethylene glycol 3350 17 g PO BID PRN 12/26/20 12/26/20 pyridoxine (vitamin B6) 25 mg PO DAILY 12/26/20 12/26/20 quetiapine 25 mg PO DAILY PRN 12/26/20 12/26/20 ropinirole 1 tab PO BEDTIME 12/26/20 12/26/20 senna 8.6 mg PO BEDTIME PRN 12/26/20 12/26/20 simvastatin 1 tab PO BEDTIME 12/26/20 12/26/20 sodium phosphates [Fleet Enema] 118 ml SC DAILY PRN 12/26/20 12/26/20 sumatriptan succinate 2 tab PO Q12H PRN 12/26/20 12/26/20 tamsulosin [Flomax] 0.4 mg PO BEDTIME 12/26/20 12/26/20 thiamine HCl (vitamin B1) 100 mg PO DAILY 12/26/20 12/26/20 <Virginia Jin NP - Last Filed: 12/27/20 16:55> DS: Summary Hospital Course Hospital Course: HP as admitting provider 70 yo with pmhx AFib, diverticulitis, chronic indwelling Grimes catheter secondary to urinary retention, peripheral neuropathy who presents to the hospital with constipation. Patient's at bedside who helped with given history. Patient reports that he started having abdominal pain, diffuse, worse on the left side, and reports that the has not had a proper BM since the 20 of December. according to the pts , pt was admitted to [facility] for about 15 days for diverticulitis with resp complications. according to the , pt has chronic urinary retention for the past 1 month, he was trying strain today to push his bm, and started seeing blood in the grimes. pt is having chronic SOB, with no cough, no sputum production. he has no fever, no chills, no chest pain, no palpitations, he has nausea with no vomiting, no lower extremity edema. pt not on any narcotics although according to med rec patient is on Percocet. Of note patient comes from [facility] because he has been there for 2 months due to peripheral neuropathy, difficulty ambulating as a result and weakness. On arrival to the ED patient hemodynamically stable with no significant abnormal vitals except for heart rate of 112 which normalized Labs are significant for WBC count of 13.4, CT of the brain 3, INR of 1.5, PTT of 45.3, BUN of 6, creatinine of 0.98, lactic acid of 7.8, which improved to 1.4 after fluids, magnesium 2.7, calcium of 11.6, AST of 44, ALT of 31, alk-phos of 147, UA that is positive for blood, Abdomen CT shows a fecal bolus that distends the rectum and the rectal wall that is thickened with some perirectal fat stranding. Possible stercoral colitis. No acute diverticulitis or abscess . Stercoral colitis. Had multiple episodes of loose stools. No more regular. Continue miralax prn for constipation. Hypertension. Stable during admission. Continue home medications. Hematuria. Chronic grimes cathether. Likely secondary to trauma from pulling on catheter. Has follow up with urology as outpatient. Attending Attestation: Patient seen and examined independently and I was present during sarkar portion of E/M service. Agree with Adriane Jin NP's history, physical, assessment, and plan <Virginia Jin NP - Last Filed: 12/27/20 16:55> Time Spent with Patient Time attestation: Total time spent providing and/or coordinating discharge services: <Virginia Jin NP - Last Filed: 12/27/20 16:55> Discharge coordination time: Greater than 30 minutes <Virginia Jin NP - Last Filed: 12/27/20 16:55> Quality: Stroke Does the patient have a stroke diagnosis?: No <Virginia Jin NP - Last Filed: 12/27/20 16:55> Physical Exam Vital Signs: Vital Signs: Last Vital Signs Temp 98.1 F 12/27/20 07:58 Pulse 79 12/27/20 09:27 Resp 19 12/27/20 07:58 BP 124/66 12/27/20 09:27 Pulse Ox 100 12/27/20 07:58 Body Mass Index 22.4 <Virginia Jin NP - Last Filed: 12/27/20 16:55> Appearing in no acute distress head is normocephalic atraumatic eyes pupils are PERRLA sclera is anicteric mouth throat mucous membranes are intact and moist neck is supple no lymphadenopathy, no JVD noted lung sounds are clear to auscultation heart regular rate rhythm, clear S1, S2 positive bowel sounds, abdomen is soft, nontender neuro patient is alert x3, no focal deficits <Virginia Jin NP - Last Filed: 12/27/20 16:55> DS: Data Data Completed and Pending Labs on day of discharge: Preliminary micro results at discharge 12/25/20 19:15 Blood Culture - Preliminary Blood - Venous No growth after 24 hours. 12/25/20 19:15 Blood Culture - Preliminary Blood - Venous No growth after 24 hours. <Virginia Jin NP - Last Filed: 12/27/20 16:55> Discharge Plan Discharge Anticipated Discharge Date/Time: 12/27/20 11:23 <Virginia Jin NP - Last Filed: 12/27/20 16:55> Patient Disposition: Xfer Inpatient Rehab Fac <Virginia Jin NP - Last Filed: 12/27/20 16:55> Discharge Diagnosis: stercoral colitis lactic acidosis <Virginia Jin NP - Last Filed: 12/27/20 16:55> stercoral colitis lactic acidosis <Black Pena MD - Last Filed: 12/28/20 08:33> Referrals: [facility] [Outside] - 1 Week Tello Philippe MD [Primary Care Provider] - 1 Week <Virginia Jin NP - Last Filed: 12/27/20 16:55> Discharge Medications: New gabapentin 300 mg Capsule 300 mg PO DAILY Qty: 30 RF: 0 duloxetine 60 mg Capsule,Delayed Release(Dr/Ec) 60 mg PO DAILY Qty: 30 RF: 0 Continued cyclobenzaprine 10 mg tablet 1 tab PO BEDTIME RF: 0 simvastatin 10 mg tablet 1 tab PO BEDTIME RF: 0 sumatriptan succinate 50 mg tablet 2 tab PO Q12H PRN (Reason: Migraine Headache) RF: 0 amlodipine 5 mg tablet 1 tab PO DAILY RF: 0 oxycodone-acetaminophen 5-325 mg tablet 1 tab PO NEEDED RF: 0 ropinirole 0.25 mg tablet 1 tab PO BEDTIME RF: 0 hydrochlorothiazide 12.5 mg capsule 1 cap PO DAILY RF: 0 Eliquis 5 mg tablet 1 tab PO BID RF: 0 acetaminophen [Acetaminophen Extra Strength] 500 mg Tablet 1,000 mg PO Q8-12H PRN (Reason: Pain) RF: 0 docusate sodium 100 mg Capsule 100 mg PO Q12H PRN (Reason: Constipation) RF: 0 cholecalciferol (vitamin D3) 50 mcg (2,000 unit) Capsule 50 mcg PO DAILY RF: 0 famotidine 20 mg Tablet 20 mg PO BID RF: 0 tamsulosin [Flomax] 0.4 mg Capsule 0.4 mg PO BEDTIME RF: 0 Fleet Enema 19-7 gram/118 mL Enema 118 ml SC DAILY PRN (Reason: Constipation) RF: 0 gabapentin 300 mg Capsule 300 mg PO BEDTIME RF: 0 folic acid 1 mg Tablet 1 mg PO DAILY RF: 0 polyethylene glycol 3350 17 gram/dose Powder 17 g PO BID PRN (Reason: Constipation) RF: 0 duloxetine 30 mg Capsule, Delayed Rel Sprinkle 30 mg PO BID RF: 0 lactulose 10 gram/15 mL Solution 20 g PO DAILY PRN (Reason: Constipation) RF: 0 melatonin 3 mg Tablet 3 mg PO BEDTIME PRN (Reason: Insomnia) RF: 0 magnesium hydroxide [Milk of Magnesia] 400 mg/5 mL Suspension 30 ml PO DAILY PRN (Reason: Constipation) RF: 0 quetiapine 25 mg Tablet 25 mg PO DAILY PRN (Reason: Psychosis) RF: 0 thiamine HCl (vitamin B1) 100 mg Tablet 100 mg PO DAILY RF: 0 pyridoxine (vitamin B6) 50 mg Tablet 25 mg PO DAILY RF: 0 senna 8.6 mg Capsule 8.6 mg PO BEDTIME PRN (Reason: Constipation) RF: 0 Monika Jin NP - Last Filed: 12/27/20 16:55> Discharge Orders: Discharge Order (Routine); Ordered 12/27/20 Ordered By: Virginia Jin <Virginia Jin NP - Last Filed: 12/27/20 16:55> Diet: advance to usual diet <Virginia Jin NP - Last Filed: 12/27/20 16:55> advance to usual diet <Black Pena MD - Last Filed: 12/28/20 08:33> Activity on Discharge: As tolerated <Virginia Jin NP - Last Filed: 12/27/20 16:55> As tolerated <Black Pena MD - Last Filed: 12/28/20 08:33> Stand Alone Forms: Patient Portal Discharge page <Virginia Jin NP - Last Filed: 12/27/20 16:55> Care Plan Goals: Resolution of constipation <Virginia Jin NP - Last Filed: 12/27/20 16:55> Health Concerns: Stercoral colitis Lactic acidosis <Virginia Jin NP - Last Filed: 12/27/20 16:55> Plan of Treatment: Follow-up with primary care provider as needed Follow-up with urologist at next scheduled appointment <Virginia Jin NP - Last Filed: 12/27/20 16:55> Assessment: See discharge summary <Virginia Jin NP - Last Filed: 12/27/20 16:55> Discharge Date/Time: 12/27/20 16:25 <Virginia Jin NP - Last Filed: 12/27/20 16:55>
[2020-12-27 12:00] VITALS: BP 129/68; PULSE 83; RESP 20; TEMP 37.3; O2SAT 99
--- NOTE | 2020-12-27 15:35 | MHC.SL.SWA ---
Speech Pathologist Impression: Risk of Aspiration Oralpharyngeal Dysphagia Dysphasia Diet Status: No Change Liquid Consistency and Strategies for Safe Swallow: Liquid Intake Recommendation: Thin Liquid Intake Strategies: Small Sips Solid Food Consistency: Dietary Recommendations: Chopped/Advanced (NDD3) Additional Modifications to Solid Foods: moisten food with sauce/gravy; strategies for oral clearance- small bites/sips; chew food well; alternate bite of food with sip of liquid Oral Medication Intake: Whole with Puree Compensatory Strategies and Precautions to be Taken for Safe Swallow: Sitting Upright (90 deg) Small Bites and Sips Alternate Liquids/Solids Rate of Ingestion Change Avoid Specific Foods Supervision While Eating and Drinking for Safe Swallow: Intermittent Supervision Foods to Avoid: Avoid tough/dry/sticky food Swallowing Recommended Treatments: Compens. Strategy Educat. Recommendation for Speech: Speech Therapy through Rehab Facility Comment: Patient presents with mild oral dysphagia, characterized by multiple swallow and prolonged oral phase. Patient is recommended strategies to promote oral clearance: small bites, chew food well, alternate bite of food with sip of liquid, moisten food with sauce/gravy. Car Worker Clinican/Clinical Fellow: No Supervisory Statement: I have reviewed and agree with the student/clinical fellow's documentation: N/A Speech Language Pathologist: Ange Fontaine M.A., CCC-HIGHER LEVEL TEACHING ASSISTANT
[2020-12-27 15:58] VITALS: BP 122/72; PULSE 76; RESP 17; TEMP 36.1; O2SAT 99
== END 2020-12-27 16:25 | DRG 392 ==
LOC: HO.ED 22:32 → HO.EDOVER 12-26 00:26 → HO.S3 12-26 02:46
PROVIDERS: Admitting Provider Internal Medicine; Emergency Provider Emergency Medicine; PCP Internal Medicine; Visit Provider Family Medicine
DX: K52.89 Other specified noninfective gastroenteritis and colitis (principal); E87.2 Acidosis; T83.83XA Hemorrhage due to genitourinary prosthetic devices, implants and grafts, initial encounter; K56.41 Fecal impaction; I48.91 Unspecified atrial fibrillation; R31.9 Hematuria, unspecified; Z20.822 Contact with and (suspected) exposure to COVID-19; Z79.01 Long term (current) use of anticoagulants; Z79.891 Long term (current) use of opiate analgesic; Z79.899 Other long term (current) drug therapy
CPT/HCPCS: 36415; 74177; 80048; 80076; 81001; 81003; 83605; 83690; 83735; 84484; 85025; 85610; 85730; 87040; 87635; 92610; 93005; 96365; 96375; 99285; J1170; J2270; J2405; J2543; Q9967

== ENCOUNTER 2021-01-10 07:47 | Emergency (ER) | payer MEDICARE, SELFPAY ==
--- NOTE | ~2021-01-10 | CT_ITS ---
EXAMINATION: CT BRAIN AND CT CERVICAL SPINE WITHOUT CONTRAST. CLINICAL INFORMATION: Syncope, LOC, on blood thinners COMPARISON: None TECHNIQUE: 5 mm thin axial and reformatted 2 mm thin sagittal and coronal images of brain were obtained. Subsequently axial 3 mm thin and reformatted 2 mm thin sagittal and coronal images of cervical spine were obtained. DLP 1108 FINDINGS: Brain: There is no acute intra-axial, extra-axial bleed, masses or midline shift. There is no acute infarction in evolution. The lateral ventricles are symmetrical in size and configuration with mild prominence. There is no edema. Bone windows reveal no calvarial abnormality. Bilateral paranasal sinuses and mastoid air cells are well aerated. Cervical spine: There is normal cervical lordosis. The vertebral heights and alignment is normal. There is mild loss of C3-C4 disc height. Rest of the disc heights are normal. The craniovertebral junction and the C1-C2 alignment is normal. No visible acute fracture, dislocation or subluxation seen. There are ventral bridging osteophytes at C3-C4 and C5-C6 disc levels. There is moderate bilateral C3-C4, C4-C5, C5-C6 and C6-C7 facet joint arthropathy. No visible acute fracture, dislocation or subluxation seen. The thyroid lobes are less symmetrical and normal. The tracheal airway is widely patent. The lung apices are clear. The prevertebral and paravertebral soft tissues are normal. CT/CT head/brain wo con IMPRESSION: No acute intracranial process seen. No acute fracture, dislocation or subluxation seen. There is bilateral facet joint arthropathy C3-C4 through C6-C7 disc levels.
--- NOTE | ~2021-01-10 | XR_ITS ---
EXAMINATION: XR CHEST CLINICAL INFORMATION: Chest pain COMPARISON: None TECHNIQUE: Frontal view of the chest was obtained. FINDINGS: Both lungs are well-expanded and clear. The heart size and pulmonary vascularity is normal. No gross bony abnormality seen. XR/XR chest 1V IMPRESSION: Unremarkable chest exam.
--- NOTE | ~2021-01-10 | CT_ITS ---
EXAMINATION: CT BRAIN AND CT CERVICAL SPINE WITHOUT CONTRAST. CLINICAL INFORMATION: Syncope, LOC, on blood thinners COMPARISON: None TECHNIQUE: 5 mm thin axial and reformatted 2 mm thin sagittal and coronal images of brain were obtained. Subsequently axial 3 mm thin and reformatted 2 mm thin sagittal and coronal images of cervical spine were obtained. DLP 1108 FINDINGS: Brain: There is no acute intra-axial, extra-axial bleed, masses or midline shift. There is no acute infarction in evolution. The lateral ventricles are symmetrical in size and configuration with mild prominence. There is no edema. Bone windows reveal no calvarial abnormality. Bilateral paranasal sinuses and mastoid air cells are well aerated. Cervical spine: There is normal cervical lordosis. The vertebral heights and alignment is normal. There is mild loss of C3-C4 disc height. Rest of the disc heights are normal. The craniovertebral junction and the C1-C2 alignment is normal. No visible acute fracture, dislocation or subluxation seen. There are ventral bridging osteophytes at C3-C4 and C5-C6 disc levels. There is moderate bilateral C3-C4, C4-C5, C5-C6 and C6-C7 facet joint arthropathy. No visible acute fracture, dislocation or subluxation seen. The thyroid lobes are less symmetrical and normal. The tracheal airway is widely patent. The lung apices are clear. The prevertebral and paravertebral soft tissues are normal. CT/CT cervical spine wo con IMPRESSION: No acute intracranial process seen. No acute fracture, dislocation or subluxation seen. There is bilateral facet joint arthropathy C3-C4 through C6-C7 disc levels.
[2021-01-10 07:49] VITALS: BP 124/70; PULSE 90
[2021-01-10 07:52] VITALS: BP 142/80; PULSE 94; RESP 12; TEMP 36.9; O2SAT 99; BMI 20.2
--- NOTE | 2021-01-10 08:04 | ECG_ITS ---
Test Reason : CHEST PAIN Blood Pressure : / mmHG Vent. Rate : 087 BPM Atrial Rate : 087 BPM P-R Int : 180 ms QRS Dur : 096 ms QT Int : 354 ms P-R-T Axes : -19 093 -65 degrees QTc Int : 425 ms Normal sinus rhythm Rightward axis Nonspecific T wave abnormality Abnormal ECG When compared with ECG of 25-DEC-2020 19:54, QRS axis Shifted right ST no longer depressed in Anterior leads Referred By: Lyn Yi Electronically Signed By:CINTHIA MERRILL MD
[2021-01-10] MEDS: Morphine Sulfate 2 MG/ML CARTRIDGE IVPUSH (08:23)
--- NOTE | 2021-01-10 08:30 | ED.CHESTPAIN ---
HPI - Chest Pain General Chief Complaint: Chest Pain <ERLIN Arriaga - Last Filed: 01/10/21 16:15> Stated Complaint: SYNCOPAL EPISODE,CP <ERLIN Arriaga - Last Filed: 01/10/21 16:15> Time Seen by Provider: 01/10/21 08:03 <ERLIN Arriaga Last Filed: 01/10/21 16:15> Source: patient and EMS <ERLIN Arriaga Last Filed: 01/10/21 16:15> Mode of arrival: EMS <ERLIN Arriaga Last Filed: 01/10/21 16:15> Limitations: no limitations <ERLIN Arriaga Last Filed: 01/10/21 16:15> History of Present Illness HPI narrative: 70 y/o male with history of atrial fibrillation on Eliquis, peripheral neuropathy, HTN, diverticulitis, urinary retention with chronic Castellanos catheter, and recent admission here for stercoral colitis who presents to the ER from his SNF via EMS with central crushing chest pain x2 hours. He reports the pain is non-raditating and comes and goes. At its worst it is about an 8/10. He is not SOB. When he arrived he reports being covered in sweat. In the middle of the night last night he reports a syncopal episode when he was transferring from his wheelchair to his bed when he got up to go to the bathroom. He was with the nurse and says he thinks he fell out of the wheelchair, lost consciousness for a second and hit his left eye on the ground. He sustained a small superficial laceration that staff bandaged. He went back to sleep and then woke up at 6am with the chest pain. The pain is worse with movement of his arms and with palpation of his chest wall. <ERLIN Arriaga Last Filed: 01/10/21 16:15> MD complaint: chest pain <ERLIN Arriaga Last Filed: 01/10/21 16:15> Onset (ago): hour(s) (2) <ERLIN Arriaga Last Filed: 01/10/21 16:15> Timing of current episode: constant <ERLIN Arriaga Last Filed: 01/10/21 16:15> Prior episodes: Yes <ERLIN Arriaga - Last Filed: 01/10/21 16:15> Onset: during rest <ERLIN Arriaga - Last Filed: 01/10/21 16:15> Pain location: substernal <ERLIN Arriaga - Last Filed: 01/10/21 16:15> Pain radiation: none <ERLIN Arriaga - Last Filed: 01/10/21 16:15> Severity: severe <ERLIN Arriaga - Last Filed: 01/10/21 16:15> Pain scale (0-10): 8 <ERLIN Arriaga - Last Filed: 01/10/21 16:15> Quality: aching and heaviness <ERLIN Arriaga - Last Filed: 01/10/21 16:15> Relieving factors: nothing <ERLIN Arriaga - Last Filed: 01/10/21 16:15> Exacerbating factors: nothing <ERLIN Arriaga - Last Filed: 01/10/21 16:15> Context: recent immobilization <ERLIN Arriaga - Last Filed: 01/10/21 16:15> Associated symptoms: diaphoresis <ERLIN Arriaga - Last Filed: 01/10/21 16:15> Treatment prior to arrival: aspirin (324 mg by EMS) <ERLIN Arriaga - Last Filed: 01/10/21 16:15> Risk Factors Coronary artery disease risk factors: diabetes and hypertension <ERLIN Arriaga - Last Filed: 01/10/21 16:15> Thoracic aortic dissection risk factors: none <ERLIN Arriaga - Last Filed: 01/10/21 16:15> Related Data Home Medications: Home Medications Medication Instructions Recorded Confirmed Eliquis 1 tab PO BID 12/26/20 12/26/20 Fleet Enema 118 ml AL DAILY PRN 12/26/20 12/26/20 acetaminophen [Acetaminophen Extra 1,000 mg PO Q8-12H PRN 12/26/20 12/26/20 Strength] amlodipine 1 tab PO DAILY 12/26/20 12/26/20 cholecalciferol (vitamin D3) 50 mcg PO DAILY 12/26/20 12/26/20 cyclobenzaprine 1 tab PO BEDTIME 12/26/20 12/26/20 docusate sodium 100 mg PO Q12H PRN 12/26/20 12/26/20 duloxetine 30 mg PO BID 12/26/20 12/26/20 famotidine 20 mg PO BID 12/26/20 12/26/20 folic acid 1 mg PO DAILY 12/26/20 12/26/20 gabapentin 300 mg PO BEDTIME 12/26/20 12/26/20 hydrochlorothiazide 1 cap PO DAILY 12/26/20 12/26/20 lactulose 20 g PO DAILY PRN 12/26/20 12/26/20 magnesium hydroxide [Milk of 30 ml PO DAILY PRN 12/26/20 12/26/20 Magnesia] melatonin 3 mg PO BEDTIME PRN 12/26/20 12/26/20 oxycodone-acetaminophen 1 tab PO NEEDED 12/26/20 12/26/20 polyethylene glycol 3350 17 g PO BID PRN 12/26/20 12/26/20 pyridoxine (vitamin B6) 25 mg PO DAILY 12/26/20 12/26/20 quetiapine 25 mg PO DAILY PRN 12/26/20 12/26/20 ropinirole 1 tab PO BEDTIME 12/26/20 12/26/20 senna 8.6 mg PO BEDTIME PRN 12/26/20 12/26/20 simvastatin 1 tab PO BEDTIME 12/26/20 12/26/20 sumatriptan succinate 2 tab PO Q12H PRN 12/26/20 12/26/20 tamsulosin [Flomax] 0.4 mg PO BEDTIME 12/26/20 12/26/20 thiamine HCl (vitamin B1) 100 mg PO DAILY 12/26/20 12/26/20 Previous Rx's Medication Instructions Recorded duloxetine 60 mg PO DAILY #30 cap 12/27/20 gabapentin 300 mg PO DAILY #30 cap 12/27/20 hydrocodone-acetaminophen 1 tab PO Q8H PRN #8 tab 01/10/21 <ERLIN Arriaga - Last Filed: 01/10/21 16:15> Allergies/Adverse Reactions: Allergies Allergy/AdvReac Type Severity Reaction Status Date / Time erythromycin base Allergy Unknown Unknown Verified 12/25/20 18:51 lisinopril Allergy Unknown Unknown Verified 12/25/20 18:51 <ERLIN Arriaga - Last Filed: 01/10/21 16:15> Review of Systems Review of Systems: Constitutional: No Fever, No Chills ENT/Mouth: No sore throat, No Rhinorrhea, No Swallowing Difficulty Eyes: No Eye Pain, No Swelling, No Redness Cardiovascular: + Chest Pain, No SOB, No Orthopnea, No Edema Respiratory: No Cough, No Sputum, No Wheezing, No dyspnea Gastrointestinal: No Nausea, No Vomiting, No Diarrhea, No abdominal Pain Genitourinary: No Dysuria, No Urinary Frequency, No Hematuria Musculoskeletal: No joint pain, No Myalgias Skin: No Skin Lesions, No rash Neuro: + Weakness, No Numbness, No Dizziness, No Headache Psych: No Anxiety/Panic, No Depression, +hallucinations Heme/Lymph: + Bruising, No Lymphadenopathy Endocrine: No Polyuria, No Polydipsia <ERLIN Arriaga - Last Filed: 01/10/21 16:15> [facility] Past Medical History Attestation statement: The following information was validated with the patient. <ERLIN Arriaga - Last Filed: 01/10/21 16:15> Medical History: Medical History Afib Chronic indwelling Castellanos catheter Diverticulitis Esophagitis Falls Migraine Weakness <ERLIN Arriaga - Last Filed: 01/10/21 16:15> Surgical History: Surgical History (Updated 12/26/20 @ 13:08 by Erna Schneider MD) History of partial colectomy <ERLIN Arriaga - Last Filed: 01/10/21 16:15> Social History Social History: Social History Household Members: Spouse Housing: Unknown / Unable to assess Unable to assess alcohol history related to: Unable to respond Alcohol intake: never Patient Tobacco Use Status: Never used Tobacco Smoked in Last 30 Days: No Use of substances other than those prescribed or required for medical reasons: No Any prior treatment program specific to substance use: No Advance Directives: No Advance Directives Information Provided: No service: No Current occupational status: retired <ERLIN Arriaga - Last Filed: 01/10/21 16:15> Physical Exam Vital Signs: Vital Signs: Last Vital Signs Temp 97.8 F 01/10/21 12:55 Pulse 82 01/10/21 12:55 Resp 17 01/10/21 12:55 BP 129/69 01/10/21 12:55 Pulse Ox 98 01/10/21 12:55 Body Mass Index 20.2 Appearance: Alert. Oriented X3. No acute distress. Head: left eye with periorbital edema and ecchymosis, small superficial laceration to lateral upper orbit. Eyes: Pupils equal, round and reactive to light. EOMI, no nystagmus ENT: Pharynx normal. Neck: Normal inspection. Neck supple. CVS: Normal heart rate and rhythm. Pulses normal. Diffuse chest wall tenderness anteriorly Respiratory: No respiratory distress. Breath sounds normal. Abdomen: Soft and nontender. +BS x4 Skin: Skin warm and dry. Normal skin color. Normal skin turgor. No rashes. Extremities: atraumatic, no edema. no ecchymosis or obvious trauma. Neuro: Oriented X 3. No motor deficit. No sensory deficit. Generalized weakness noted, LE>UE <ERLIN Arriaga - Last Filed: 01/10/21 16:15> Vital Signs: Last Vital Signs Temp 97.8 F 01/10/21 12:55 Pulse 82 01/10/21 12:55 Resp 17 01/10/21 12:55 BP 129/69 01/10/21 12:55 Pulse Ox 98 01/10/21 12:55 Body Mass Index 20.2 <Tyler Olsen MD - Last Filed: 02/17/21 13:24> Course Course Course Narrative: 70 y/o male recently bedbound at SNF for last 4 months coming in with chest pain s/p fall out of his wheelchair with brief LOC. Witnessed by staff at SNF. Hit his head and he is on a/c. No headache. Mild ecchymosis of left eye. His chest pain is reproducible and nonradiating. Suspect related to fall. Will r/o ACS and get CT head/neck, lab workup. Will monitor closely. <ERLIN Arriaga - Last Filed: 01/10/21 16:15> I have reviewed the chart <Tyler Olsen MD - Last Filed: 02/17/21 13:24> Reevaluation(s) Reevaluation #1: EKG with nonspefic t wave inversions, unchanged from prior. Troponin negative. will get repeat given onset <[address] head without traumatic injury or ICH. Pain improved with low dose morphine. <ERLIN Arriaga - Last Filed: 01/10/21 16:15> Reevaluation #2: Repeat troponin negative. Spoke with patient, his and son at the bedside. He is currently at a SNF with plans to be discharged home tomorrow morning. has arranged care and wheelchair, ramp, etc. All are in agreement to send back to SNF and proceed with d/c home once all resources are in place tomorrow. Stable for d/c. <ERLIN Arriaga - Last Filed: 01/10/21 16:15> MDM - Chest Pain Medical Records Data Attestation: I reviewed the patient's medical records. <ERLIN Arriaga - Last Filed: 01/10/21 16:15> Lab Data Attestation: I reviewed the patient's lab results. <ERLIN Arriaga - Last Filed: 01/10/21 16:15> Result diagrams: : 01/10/21 08:17 01/10/21 08:17 <ERLIN Arriaga - Last Filed: 01/10/21 16:15> Labs: Lab Results 01/10/21 01/10/21 01/10/21 Range/Units 08:17 08:17 08:17 WBC 10.5 (4.8-10.8) X10*3/uL RBC 4.27 L (4.60-5.80) X10*6/uL Hgb 13.2 L (14.0-18.0) g/dl Hct 39.2 L (42-52) % MCV 91.8 (80-98) fL MCH 30.9 (27.0-33.0) pg MCHC 33.7 (31.0-36.0) g/dl RDW 12.9 (11.0-16.0) % Plt Count 271 (160-400) X10*3/uL MPV 9.3 L (9.4-12.4) fL Immature Gran % (Auto) 0.3 (0.0-0.4) % Neut % (Auto) 74.1 H (45-73) % Lymph % (Auto) 18.6 L (20-40) % [place] % (Auto) 6.4 (2-11) % Eos % (Auto) 0.2 (0-4) % Baso % (Auto) 0.4 (0-2) % Lymph # (Auto) 2.0 (1.2-4.9) X10*3/uL [place] # (Auto) 0.7 (0.1-1.2) X10*3/uL Eos # (Auto) 0.0 (0.0-0.4) X10*3/uL Baso # (Auto) 0.0 (0.0-0.2) X10*3/uL Abs Immat Gran (auto) 0.03 (0.00-0.03) X10*3/uL Absolute Neuts (auto) 7.8 (2.0-8.3) X10*3/uL Absolute Nucleated RBC 0.000 (0.0-0.012) X10*3/uL Nucleated RBC % (auto) 0.0 (0.0-0.2) /100WBC PT (10.8-13.0) SEC INR (0.9-1.1) Sodium 134 L (135-145) mmol/L Potassium 4.1 (3.3-5.1) mmol/L Chloride 101 (96-108) mmol/L Carbon Dioxide 25 (22-29) mmol/L Anion Gap 12 (12-20) BUN 7 L (9-16) mg/dL Creatinine 0.72 (0.5-1.4) mg/dL Estim Creat Clear Calc 90.0 Estimated GFR > 60 Random Glucose 120 H (60-115) mg/dL Calcium 10.7 H D (8.4-10.2) mg/dL Magnesium 1.8 (1.6-2.6) mg/dL Total Bilirubin 1.1 H (0.0-1.0) mg/dL Direct Bilirubin 0.5 (0.0-0.5) mg/dL AST 13 D (5-37) U/L ALT 13 (0-40) U/L Alkaline Phosphatase 107 D (39-117) U/L Troponin I High Sens < 3.5 D (<3.5-35.0) ng/L B-Natriuretic Peptide < 10 (<100) pg/mL Total Protein 6.0 L (6.5-8.0) g/dL Albumin 3.4 L (3.5-5.0) g/dL 01/10/21 01/10/21 Range/Units 09:21 11:12 WBC (4.8-10.8) X10*3/uL RBC (4.60-5.80) X10*6/uL Hgb (14.0-18.0) g/dl Hct (42-52) % MCV (80-98) fL MCH (27.0-33.0) pg MCHC (31.0-36.0) g/dl RDW (11.0-16.0) % Plt Count (160-400) X10*3/uL MPV (9.4-12.4) fL Immature Gran % (Auto) (0.0-0.4) % Neut % (Auto) (45-73) % Lymph % (Auto) (20-40) % [place] % (Auto) (2-11) % Eos % (Auto) (0-4) % Baso % (Auto) (0-2) % Lymph # (Auto) (1.2-4.9) X10*3/uL [place] # (Auto) (0.1-1.2) X10*3/uL Eos # (Auto) (0.0-0.4) X10*3/uL Baso # (Auto) (0.0-0.2) X10*3/uL Abs Immat Gran (auto) (0.00-0.03) X10*3/uL Absolute Neuts (auto) (2.0-8.3) X10*3/uL Absolute Nucleated RBC (0.0-0.012) X10*3/uL Nucleated RBC % (auto) (0.0-0.2) /100WBC PT 19.1 H (10.8-13.0) SEC INR 1.6 H (0.9-1.1) Sodium (135-145) mmol/L Potassium (3.3-5.1) mmol/L Chloride (96-108) mmol/L Carbon Dioxide (22-29) mmol/L Anion Gap (12-20) BUN (9-16) mg/dL Creatinine (0.5-1.4) mg/dL Estim Creat Clear Calc Estimated GFR Random Glucose (60-115) mg/dL Calcium (8.4-10.2) mg/dL Magnesium (1.6-2.6) mg/dL Total Bilirubin (0.0-1.0) mg/dL Direct Bilirubin (0.0-0.5) mg/dL AST (5-37) U/L ALT (0-40) U/L Alkaline Phosphatase (39-117) U/L Troponin I High Sens 3.6 (<3.5-35.0) ng/L B-Natriuretic Peptide (<100) pg/mL Total Protein (6.5-8.0) g/dL Albumin (3.5-5.0) g/dL <ERLIN Arriaga - Last Filed: 01/10/21 16:15> Lab Results 01/10/21 01/10/21 01/10/21 Range/Units 08:17 08:17 08:17 WBC 10.5 (4.8-10.8) X10*3/uL RBC 4.27 L (4.60-5.80) X10*6/uL Hgb 13.2 L (14.0-18.0) g/dl Hct 39.2 L (42-52) % MCV 91.8 (80-98) fL MCH 30.9 (27.0-33.0) pg MCHC 33.7 (31.0-36.0) g/dl RDW 12.9 (11.0-16.0) % Plt Count 271 (160-400) X10*3/uL MPV 9.3 L (9.4-12.4) fL Immature Gran % (Auto) 0.3 (0.0-0.4) % Neut % (Auto) 74.1 H (45-73) % Lymph % (Auto) 18.6 L (20-40) % [place] % (Auto) 6.4 (2-11) % Eos % (Auto) 0.2 (0-4) % Baso % (Auto) 0.4 (0-2) % Lymph # (Auto) 2.0 (1.2-4.9) X10*3/uL [place] # (Auto) 0.7 (0.1-1.2) X10*3/uL Eos # (Auto) 0.0 (0.0-0.4) X10*3/uL Baso # (Auto) 0.0 (0.0-0.2) X10*3/uL Abs Immat Gran (auto) 0.03 (0.00-0.03) X10*3/uL Absolute Neuts (auto) 7.8 (2.0-8.3) X10*3/uL Absolute Nucleated RBC 0.000 (0.0-0.012) X10*3/uL Nucleated RBC % (auto) 0.0 (0.0-0.2) /100WBC PT (10.8-13.0) SEC INR (0.9-1.1) Sodium 134 L (135-145) mmol/L Potassium 4.1 (3.3-5.1) mmol/L Chloride 101 (96-108) mmol/L Carbon Dioxide 25 (22-29) mmol/L Anion Gap 12 (12-20) BUN 7 L (9-16) mg/dL Creatinine 0.72 (0.5-1.4) mg/dL Estim Creat Clear Calc 90.0 Estimated GFR > 60 Random Glucose 120 H (60-115) mg/dL Calcium 10.7 H D (8.4-10.2) mg/dL Magnesium 1.8 (1.6-2.6) mg/dL Total Bilirubin 1.1 H (0.0-1.0) mg/dL Direct Bilirubin 0.5 (0.0-0.5) mg/dL AST 13 D (5-37) U/L ALT 13 (0-40) U/L Alkaline Phosphatase 107 D (39-117) U/L Troponin I High Sens < 3.5 D (<3.5-35.0) ng/L B-Natriuretic Peptide < 10 (<100) pg/mL Total Protein 6.0 L (6.5-8.0) g/dL Albumin 3.4 L (3.5-5.0) g/dL 01/10/21 01/10/21 Range/Units 09:21 11:12 WBC (4.8-10.8) X10*3/uL RBC (4.60-5.80) X10*6/uL Hgb (14.0-18.0) g/dl Hct (42-52) % MCV (80-98) fL MCH (27.0-33.0) pg MCHC (31.0-36.0) g/dl RDW (11.0-16.0) % Plt Count (160-400) X10*3/uL MPV (9.4-12.4) fL Immature Gran % (Auto) (0.0-0.4) % Neut % (Auto) (45-73) % Lymph % (Auto) (20-40) % [place] % (Auto) (2-11) % Eos % (Auto) (0-4) % Baso % (Auto) (0-2) % Lymph # (Auto) (1.2-4.9) X10*3/uL [place] # (Auto) (0.1-1.2) X10*3/uL Eos # (Auto) (0.0-0.4) X10*3/uL Baso # (Auto) (0.0-0.2) X10*3/uL Abs Immat Gran (auto) (0.00-0.03) X10*3/uL Absolute Neuts (auto) (2.0-8.3) X10*3/uL Absolute Nucleated RBC (0.0-0.012) X10*3/uL Nucleated RBC % (auto) (0.0-0.2) /100WBC PT 19.1 H (10.8-13.0) SEC INR 1.6 H (0.9-1.1) Sodium (135-145) mmol/L Potassium (3.3-5.1) mmol/L Chloride (96-108) mmol/L Carbon Dioxide (22-29) mmol/L Anion Gap (12-20) BUN (9-16) mg/dL Creatinine (0.5-1.4) mg/dL Estim Creat Clear Calc Estimated GFR Random Glucose (60-115) mg/dL Calcium (8.4-10.2) mg/dL Magnesium (1.6-2.6) mg/dL Total Bilirubin (0.0-1.0) mg/dL Direct Bilirubin (0.0-0.5) mg/dL AST (5-37) U/L ALT (0-40) U/L Alkaline Phosphatase (39-117) U/L Troponin I High Sens 3.6 (<3.5-35.0) ng/L B-Natriuretic Peptide (<100) pg/mL Total Protein (6.5-8.0) g/dL Albumin (3.5-5.0) g/dL <Tyler Olsen MD - Last Filed: 02/17/21 13:24> ECG Data ECG #1: Attestation: I personally reviewed and interpreted this ECG as follows: <ERLIN Arriaga - Last Filed: 01/10/21 16:15> ECG interpretation date: 01/10/21 <ERLIN Arriaga - Last Filed: 01/10/21 16:15> ECG interpretation time: 08:38 <ERLIN Arriaga - Last Filed: 01/10/21 16:15> Prior ECG tracings: available for review <ERLIN Arriaga - Last Filed: 01/10/21 16:15> Interpretation: normal sinus rhythm, HR 87 bpm, normal AL interval, t-wave inversions in leads III, V6 <ERLIN Arriaga - Last Filed: 01/10/21 16:15> Discharge Plan Discharge Clinical Impression: Acute chest wall pain <ERLIN Arriaga - Last Filed: 01/10/21 16:15> Patient Disposition: [facility] <ERLIN Arriaga - Last Filed: 01/10/21 16:15> Instructions: Chest Wall Pain (ED) <ERLIN Arriaga - Last Filed: 01/10/21 16:15> Additional Instructions: Your CT scan did not show any traumatic injuries. Your lab workup was largely unremarkable. Mildly elevated calcium level that should be re-checked & monitoed by your doctor. Your pain is most likely muscular in nature. Take the prescribed medication as needed for severe pain. Follow up with your doctor as scheduled. If you have worsening pain or change in pain, or develop difficulty breathing call 911 or come back to the ER for further evaluation. <ERLIN Arriaga - Last Filed: 01/10/21 16:15> Prescriptions: New hydrocodone-acetaminophen 5-325 mg tablet 1 tab PO Q8H PRN (Reason: pain) Qty: 8 RF: 0 No Action cyclobenzaprine 10 mg tablet 1 tab PO BEDTIME RF: 0 simvastatin 10 mg tablet 1 tab PO BEDTIME RF: 0 sumatriptan succinate 50 mg tablet 2 tab PO Q12H PRN (Reason: Migraine Headache) RF: 0 amlodipine 5 mg tablet 1 tab PO DAILY RF: 0 oxycodone-acetaminophen 5-325 mg tablet 1 tab PO NEEDED RF: 0 ropinirole 0.25 mg tablet 1 tab PO BEDTIME RF: 0 hydrochlorothiazide 12.5 mg capsule 1 cap PO DAILY RF: 0 Eliquis 5 mg tablet 1 tab PO BID RF: 0 acetaminophen [Acetaminophen Extra Strength] 500 mg Tablet 1,000 mg PO Q8-12H PRN (Reason: Pain) RF: 0 docusate sodium 100 mg Capsule 100 mg PO Q12H PRN (Reason: Constipation) RF: 0 cholecalciferol (vitamin D3) 50 mcg (2,000 unit) Capsule 50 mcg PO DAILY RF: 0 famotidine 20 mg Tablet 20 mg PO BID RF: 0 tamsulosin [Flomax] 0.4 mg Capsule 0.4 mg PO BEDTIME RF: 0 Fleet Enema 19-7 gram/118 mL Enema 118 ml AL DAILY PRN (Reason: Constipation) RF: 0 gabapentin 300 mg Capsule 300 mg PO BEDTIME RF: 0 folic acid 1 mg Tablet 1 mg PO DAILY RF: 0 polyethylene glycol 3350 17 gram/dose Powder 17 g PO BID PRN (Reason: Constipation) RF: 0 duloxetine 30 mg Capsule, Delayed Rel Sprinkle 30 mg PO BID RF: 0 lactulose 10 gram/15 mL Solution 20 g PO DAILY PRN (Reason: Constipation) RF: 0 melatonin 3 mg Tablet 3 mg PO BEDTIME PRN (Reason: Insomnia) RF: 0 magnesium hydroxide [Milk of Magnesia] 400 mg/5 mL Suspension 30 ml PO DAILY PRN (Reason: Constipation) RF: 0 quetiapine 25 mg Tablet 25 mg PO DAILY PRN (Reason: Psychosis) RF: 0 thiamine HCl (vitamin B1) 100 mg Tablet 100 mg PO DAILY RF: 0 pyridoxine (vitamin B6) 50 mg Tablet 25 mg PO DAILY RF: 0 senna 8.6 mg Capsule 8.6 mg PO BEDTIME PRN (Reason: Constipation) RF: 0 gabapentin 300 mg Capsule 300 mg PO DAILY Qty: 30 RF: 0 duloxetine 60 mg Capsule,Delayed Release(Dr/Ec) 60 mg PO DAILY Qty: 30 RF: 0 <ERLIN Arriaga - Last Filed: 01/10/21 16:15> Discharge Date/Time: 01/10/21 14:00 <ERLIN Arriaga - Last Filed: 01/10/21 16:15>
[2021-01-10 08:32] LABS: MANUAL DIFF FLAG NO
[2021-01-10 08:36] LABS: Basophils Percent Auto 0.4 % (0-2); Eosinophils Percent Auto 0.2 % (0-4); Hematocrit 39.2 % (42-52); Hemoglobin 13.2 g/dl (14.0-18.0); Imm Gran Abs Auto 0.03 X10*3/uL (0.00-0.03); Imm Gran Pct Auto 0.3 % (0.0-0.4); Lymphocytes Percent Auto 18.6 % (20-40); Mean Corpuscular HGB Conc 33.7 g/dl (31.0-36.0); Mean Corpuscular Hemoglobin 30.9 pg (27.0-33.0); Mean Corpuscular Volume 91.8 fL (80-98); Mean Platelet Volume 9.3 fL (9.4-12.4); Monocytes Absolute Auto 0.7 X10*3/uL (0.1-1.2); Monocytes Percent Auto 6.4 % (2-11); Neutrophils Absolute Auto 7.8 X10*3/uL (2.0-8.3); Neutrophils Percent Auto 74.1 % (45-73); Platelet Count 271 X10*3/uL (160-400); Red Blood Count 4.27 X10*6/uL (4.60-5.80); Red Cell Distribution Width 12.9 % (11.0-16.0); White Blood Count 10.5 X10*3/uL (4.8-10.8)
[2021-01-10 09:00] LABS: Alanine Aminotransferase 13 U/L (0-40); Albumin Level 3.4 g/dL (3.5-5.0); Alkaline Phosphatase 107 U/L (39-117); Anion Gap 12 (12-20); Aspartate Amino Transferase 13 U/L (5-37); Bilirubin Direct 0.5 mg/dL (0.0-0.5); Bilirubin Total 1.1 mg/dL (0.0-1.0); Blood Urea Nitrogen 7 mg/dL (9-16); Calcium 10.7 mg/dL (8.4-10.2); Carbon Dioxide 25 mmol/L (22-29); Chloride 101 mmol/L (96-108); Estimated Glomerular Filt Rate > 60; Glucose Random 120 mg/dL (60-115); Magnesium 1.8 mg/dL (1.6-2.6); Potassium 4.1 mmol/L (3.3-5.1); Sodium 134 mmol/L (135-145)
[2021-01-10 09:02] LABS: B Type Natriuretic Peptide < 10 pg/mL (<100); Troponin-I High Sensitivity < 3.5 ng/L (<3.5-35.0)
[2021-01-10 09:49] LABS: INTERNATIONAL NORM RATIO 1.6 (0.9-1.1); Prothrombin Time 19.1 SEC (10.8-13.0)
[2021-01-10] MEDS: 0.9 % Sodium Chloride 1,000 ML 999 ML IVCONT (10:04)
[2021-01-10] MEDS: HYDROcodone Bit/Acetam 5/325 TABLET 1 TAB PO (10:34)
[2021-01-10 10:35] VITALS: BP 144/84; PULSE 89; RESP 19; O2SAT 100
[2021-01-10 11:42] LABS: Troponin-I High Sensitivity 3.6 ng/L (<3.5-35.0)
[2021-01-10 12:55] VITALS: BP 129/69; PULSE 82; RESP 17; TEMP 36.6; O2SAT 98
== END 2021-01-10 14:00 | disposition skilled nursing facility (03) ==
PROVIDERS: Physician Assistant; Emergency Provider Emergency Medicine; PCP Internal Medicine
DX: R07.89 Other chest pain (principal); R55 Syncope and collapse; R06.02 Shortness of breath; M54.2 Cervicalgia; I48.91 Unspecified atrial fibrillation; I10 Essential (primary) hypertension; R33.9 Retention of urine, unspecified; Z79.899 Other long term (current) drug therapy; Z79.01 Long term (current) use of anticoagulants
CPT/HCPCS: 36415; 70450; 71045; 72125; 80048; 80076; 83735; 83880; 84484; 85025; 85610; 87040; 93005; 96365; 96375; 99285; J2270

== ENCOUNTER 2021-03-15 09:32 | Day surgery (SDC) | payer MEDICARE, SELFPAY ==
--- NOTE | ~2021-03-15 | FL_ITS ---
EXAMINATION: XR LUMBAR PUNCTURE CLINICAL INFORMATION: Peripheral neuropathy. COMPARISON: None. TECHNIQUE: Fluoroscopic guided lumbar puncture. FINDINGS: Informed consent was obtained from the patient prior to the procedure. During this process, the procedure and potential alternatives were explained, along with the intended outcome and benefits. The risks of the procedure, as well as the risk of not doing the procedure, were discussed. The patient was given the opportunity to ask questions regarding the procedure and appeared competent to make medical decisions. A signed consent form which documents this discussion was placed in the medical record. Using sterile technique and fluoroscopic guidance at the L4-L5 level, a 22-gauge spinal needle was placed into the thecal sac. There was no return of cerebral spinal fluid in this location. A second level lumbar puncture was performed at the L3-L4 level with some assistance from Dr. Cardoza. Opening pressure was 9 cm of water and there was slow return of cerebral spinal fluid, which was pink-tinged. Only a total of 5 mL of cerebrospinal fluid was removed over a 40-minute time period. Patient tolerated procedure without difficulty. FLUOROSCOPY TIME: 2.2 minutes. DOSE AREA PRODUCT: 16.010 Gy-cm2 (diggs-centimeter squared). FL/FL guided lumbar puncture LP IMPRESSION: Lumbar puncture as described with pink-tinged CSF, likely related to traumatic tap. No elevated opening pressure.
[2021-03-15 10:08] VITALS: BP 142/76; PULSE 82; RESP 18; TEMP 36.7; O2SAT 98; BMI 23.6
[2021-03-15 10:19] LABS: MANUAL DIFF FLAG NO
[2021-03-15 10:22] LABS: Basophils Percent Auto 0.3 % (0-2); Eosinophils Absolute Auto 0.2 X10*3/uL (0.0-0.4); Eosinophils Percent Auto 2.3 % (0-4); Hematocrit 37.2 % (42-52); Hemoglobin 12.4 g/dl (14.0-18.0); Imm Gran Abs Auto 0.01 X10*3/uL (0.00-0.03); Imm Gran Pct Auto 0.1 % (0.0-0.4); Lymphocytes Absolute Auto 1.7 X10*3/uL (1.2-4.9); Lymphocytes Percent Auto 23.9 % (20-40); Mean Corpuscular HGB Conc 33.3 g/dl (31.0-36.0); Mean Corpuscular Hemoglobin 31.2 pg (27.0-33.0); Mean Corpuscular Volume 93.7 fL (80-98); Mean Platelet Volume 8.4 fL (9.4-12.4); Monocytes Absolute Auto 0.6 X10*3/uL (0.1-1.2); Monocytes Percent Auto 7.9 % (2-11); Neutrophils Absolute Auto 4.6 X10*3/uL (2.0-8.3); Neutrophils Percent Auto 65.5 % (45-73); Platelet Count 180 X10*3/uL (160-400); Red Blood Count 3.97 X10*6/uL (4.60-5.80); Red Cell Distribution Width 13.1 % (11.0-16.0); White Blood Count 7.1 X10*3/uL (4.8-10.8)
[2021-03-15 10:26] LABS: Prothrombin Time 11.6 SEC (9.9-13.0)
[2021-03-15 10:28] LABS: Glucose, Whole Blood 97 mg/dL (60-115)
[2021-03-15 10:29] LABS: Partial Thromboplastin Time 40.4 SEC (24.1-38.0)
[2021-03-15 13:59] VITALS: BP 125/58; PULSE 74; RESP 16; TEMP 37.3; O2SAT 99
[2021-03-15 14:30] VITALS: BP 155/77; PULSE 87; RESP 20
[2021-03-15 14:42] LABS: CSF Tube # 1
[2021-03-15 14:43] LABS: CSF Appearance Clear, Colorless
[2021-03-15 14:53] LABS: Glucose CSF 54 mg/dL; Total Protein CSF 60.8 mg/dL (15-45)
[2021-03-15 15:00] VITALS: BP 144/64; PULSE 74; RESP 20; O2SAT 99
[2021-03-15 15:32] LABS: Appearance CSF CLOUDY; CSF Tube # 4; Color CSF PINK; White Blood Cell CSF 9 MM*3
[2021-03-15 15:33] LABS: Lymphocytes CSF 56 %; Neutrophils CSF 44 %; Red Blood Cell CSF 3900 MM*3
[2021-03-15 16:00] VITALS: BP 131/66; PULSE 81; RESP 18; O2SAT 99
[2021-03-15 17:00] VITALS: BP 134/70; PULSE 85; RESP 18; TEMP 36.7; O2SAT 99
[2021-03-16 10:21] LABS: Oligoclonal Serum Yes
[2021-03-26 21:06] LABS: IgG 991 mg/dL (600-1540); IgG Synthesis Rate 2.2 mg/24 h (-9.9-3.3); IgG, CSF 5.1 mg/dL (0.8-7.7)
== END 2021-03-15 17:12 | disposition home or self-care (01) ==
PROVIDERS: Psychiatry & Neurology Neurology; PCP Internal Medicine; Visit Provider Radiology Diagnostic Radiology
PROC: 009U3ZZ Drainage of Spinal Canal, Percutaneous Approach (ICD-10-PCS; CPT 62270; principal; 2021-03-15 11:00)
DX: G62.9 Polyneuropathy, unspecified (principal); F10.20 Alcohol dependence, uncomplicated; F41.8 Other specified anxiety disorders; I48.91 Unspecified atrial fibrillation; Z79.01 Long term (current) use of anticoagulants; Z79.899 Other long term (current) drug therapy; Z88.8 Allergy status to other drugs, medicaments and biological substances
CPT/HCPCS: 36415; 62328; 82042; 82945; 82947; 83916; 84157; 85025; 85610; 85730; 87015; 87070; 87205; 89051

== ENCOUNTER 2021-03-31 12:25 | Outpatient (REF) | payer MEDICARE, SELFPAY ==
[2021-03-31 14:11] LABS: Erythrocyte Sedimentation Rate 12 MM/HR (0-15)
[2021-04-01 04:52] LABS: Syphilis Screen Nonreactive (Nonreactive)
[2021-04-02 01:56] LABS: Lyme Abs Screen <0.90 index
[2021-04-05 13:20] LABS: IgA 229 mg/dL (70-320); IgG 1066 mg/dL (600-1540); IgM 43 mg/dL (50-300)
== END 2021-03-31 12:26 | disposition home or self-care (01) ==
LOC: HO.LAB 12:25
PROVIDERS: PCP Internal Medicine; Visit Provider Psychiatry & Neurology Neurology
DX: Z01.84 Encounter for antibody response examination (principal); G62.9 Polyneuropathy, unspecified
CPT/HCPCS: 36415; 82784; 85652; 86334; 86617; 86618; 86780

== ENCOUNTER 2021-05-21 11:38 | Emergency (ER) | payer MEDICARE, SELFPAY ==
[2021-05-21 12:11] VITALS: BP 147/80; PULSE 88; RESP 18; TEMP 36.8; O2SAT 96; BMI 24.7
[2021-05-21 15:22] LABS: MANUAL DIFF FLAG NO
[2021-05-21 15:23] LABS: Basophils Percent Auto 0.2 % (0-2); Eosinophils Percent Auto 0.4 % (0-4); Hematocrit 42.7 % (42-52); Hemoglobin 14.2 g/dl (14.0-18.0); Imm Gran Abs Auto 0.09 X10*3/uL (0.00-0.03); Imm Gran Pct Auto 0.9 % (0.0-0.4); Lymphocytes Absolute Auto 2.8 X10*3/uL (1.2-4.9); Lymphocytes Percent Auto 28.8 % (20-40); Mean Corpuscular HGB Conc 33.3 g/dl (31.0-36.0); Mean Corpuscular Hemoglobin 29.6 pg (27.0-33.0); Mean Corpuscular Volume 89.1 fL (80-98); Mean Platelet Volume 8.6 fL (9.4-12.4); Monocytes Absolute Auto 0.5 X10*3/uL (0.1-1.2); Monocytes Percent Auto 4.9 % (2-11); Neutrophils Absolute Auto 6.2 X10*3/uL (2.0-8.3); Neutrophils Percent Auto 64.8 % (45-73); Platelet Count 192 X10*3/uL (160-400); Red Blood Count 4.79 X10*6/uL (4.60-5.80); Red Cell Distribution Width 12.6 % (11.0-16.0); White Blood Count 9.6 X10*3/uL (4.8-10.8)
[2021-05-21 15:49] LABS: Alanine Aminotransferase 19 U/L (0-40); Albumin Level 4.2 g/dL (3.5-5.0); Alkaline Phosphatase 146 U/L (39-117); Anion Gap 15 (12-20); Aspartate Amino Transferase 10 U/L (5-37); Bilirubin Total 0.3 mg/dL (0.0-1.0); Blood Urea Nitrogen 18 mg/dL (9-16); Calcium 11.2 mg/dL (8.4-10.2); Carbon Dioxide 29 mmol/L (22-29); Chloride 96 mmol/L (96-108); Creatinine Clr Calc Pharmacy 61.5; Estimated Glomerular Filt Rate > 60; Glucose Random 423 mg/dL (60-115); Lactic Acid 2.5 mmol/L (0.5-2.0); Potassium 4.5 mmol/L (3.3-5.1); Sodium 135 mmol/L (135-145); Total Protein 7.2 g/dL (6.5-8.0)
[2021-05-21 16:09] VITALS: BP 144/73; PULSE 73; RESP 15; TEMP 36.7; O2SAT 97
--- NOTE | 2021-05-21 16:27 | ED_ITS ---
HPI - Skin/Abscess/Foreign Bdy General Chief complaint: Skin/Abscess/Foreign Body Stated complaint: L LEG INFECTION Source: patient Mode of arrival: ambulatory Limitations: no limitations History of Present Illness HPI narrative: 71-year-old male presents with 2 wounds on the left lower extremity. Stated 1 wound started on Sunday, that wound blistered up and then opened, stated that the area of redness and opening is getting larger. Noted yesterday that a smaller wound started lower, then blistered over with purulent drainage. He does not report injury, does not state to have fevers or chills. MD complaint: abscess/boil Onset (ago): day(s) (4) Tetanus up to date: yes Location: LLE Severity: mild Severity scale (1-10): 2 Quality: burning Pain Consistency: constant Relieving factors: none Associated symptoms: denies other symptoms Treatments prior to arrival: bandages Related Data Home Medications Medication Instructions Recorded Confirmed acetaminophen 500 mg tablet 1,000 mg PO Q8-12H PRN 12/26/20 12/26/20 (Acetaminophen Extra Strength) amlodipine 5 mg tablet 1 tab PO DAILY 12/26/20 12/26/20 apixaban 5 mg tablet (Eliquis) 1 tab PO BID 12/26/20 12/26/20 cholecalciferol (vitamin D3) 50 50 mcg PO DAILY 12/26/20 12/26/20 mcg (2,000 unit) capsule cyclobenzaprine 10 mg tablet 1 tab PO BEDTIME 12/26/20 12/26/20 docusate sodium 100 mg capsule 100 mg PO Q12H PRN 12/26/20 12/26/20 duloxetine 30 mg capsule,delayed 30 mg PO BID 12/26/20 12/26/20 release sprinkle famotidine 20 mg tablet 20 mg PO BID 12/26/20 12/26/20 folic acid 1 mg tablet 1 mg PO DAILY 12/26/20 12/26/20 gabapentin 300 mg capsule 300 mg PO BEDTIME 12/26/20 12/26/20 hydrochlorothiazide 12.5 mg capsule 1 cap PO DAILY 12/26/20 12/26/20 lactulose 10 gram/15 mL oral 20 g PO DAILY PRN 12/26/20 12/26/20 solution magnesium hydroxide 400 mg/5 mL 30 ml PO DAILY PRN 12/26/20 12/26/20 oral suspension (Milk of Magnesia) melatonin 3 mg tablet 3 mg PO BEDTIME PRN 12/26/20 12/26/20 oxycodone-acetaminophen 5 mg-325 1 tab PO NEEDED 12/26/20 12/26/20 mg tablet polyethylene glycol 3350 17 17 g PO BID PRN 12/26/20 12/26/20 gram/dose oral powder pyridoxine (vitamin B6) 50 mg 25 mg PO DAILY 12/26/20 12/26/20 tablet quetiapine 25 mg tablet 25 mg PO DAILY PRN 12/26/20 12/26/20 ropinirole 0.25 mg tablet 1 tab PO BEDTIME 12/26/20 12/26/20 sennosides 8.6 mg capsule (senna) 8.6 mg PO BEDTIME PRN 12/26/20 12/26/20 simvastatin 10 mg tablet 1 tab PO BEDTIME 12/26/20 12/26/20 sodium phosphates 19 gram-7 118 ml [place] DAILY PRN 12/26/20 12/26/20 gram/118 mL enema (Fleet Enema) sumatriptan succinate 50 mg tablet 2 tab PO Q12H PRN 12/26/20 12/26/20 tamsulosin 0.4 mg capsule (Flomax) 0.4 mg PO BEDTIME 12/26/20 12/26/20 thiamine HCl (vitamin B1) 100 mg 100 mg PO DAILY 12/26/20 12/26/20 tablet Previous Rx's Medication Instructions Recorded duloxetine 60 mg capsule,delayed 60 mg PO DAILY #30 cap 12/27/20 release gabapentin 300 mg capsule 300 mg PO DAILY #30 cap 12/27/20 hydrocodone 5 mg-acetaminophen 325 1 tab PO Q8H PRN #8 tab 01/10/21 mg tablet cephalexin 500 mg capsule 500 mg PO QID 7 Days #28 cap 05/21/21 doxycycline monohydrate 100 mg 100 mg PO BID 10 Days #20 cap 05/21/21 capsule mupirocin 2 % topical ointment 1 appl TOPICAL BID #22 g 05/21/21 Allergies Allergy/AdvReac Type Severity Reaction Status Date / Time erythromycin base Allergy Intermediate Nausea Verified 03/15/21 09:54 lisinopril Allergy Intermediate Cough Verified 03/15/21 09:54 Review of Systems Review of Systems: Constitutional: No Fever, No Chills ENT/Mouth: No Ear Pain, No Hoarseness, No sore throat Eyes: No Eye Pain, No Swelling, No Redness, No Foreign Body Cardiovascular: No Chest Pain, No SOB Respiratory: No Cough, No Dyspnea Gastrointestinal: No Nausea, No Vomiting, No Diarrhea, No abdominal Pain Genitourinary: No Dysuria, No Hematuria Musculoskeletal: No joint pain, No Myalgias, No Joint Swelling Skin: Positive pustule wounds to left lower extremity, No Skin lacerations, No rash Neuro: No Weakness, No Numbness, No Paresthesias, No Loss of Consciousness, No Dizziness, No Headache Psych: No Anxiety/Panic, No Depression Heme/Lymph: no easy bruising, no Lymphadenopathy Endocrine: No Polyuria, No Polydipsia Yes all other systems are reviewed and are negative [facility] Past Medical History Attestation statement: The following information was validated with the patient. Source: old records reviewed Medical History Afib Diverticulitis Esophagitis Falls Migraine Weakness Surgical History History of partial colectomy Social History Social History Household Members: Spouse Housing: Unknown / Unable to assess Unable to assess alcohol history related to: Unable to respond Alcohol intake: never Patient Tobacco Use Status: Never used Tobacco Use of substances other than those prescribed or required for medical reasons: No Advance Directives: Yes Advance Directives Information Provided: Yes Advance Directives on File: No service: No Current occupational status: retired Physical Exam Vital Signs: Vital Signs: Last Vital Signs Temp 98.0 F 05/21/21 16:09 Pulse 73 05/21/21 16:09 Resp 15 05/21/21 16:09 BP 144/73 H 05/21/21 16:09 Pulse Ox 97 05/21/21 16:09 Body Mass Index 24.7 Appearance: Alert. Oriented X3. No acute distress. Eyes: Pupils equal, round and reactive to light. Sclera nonicteric. ENT: Pharynx normal. Moist mucous membranes. Neck: Normal inspection. Neck supple. CVS: Normal heart rate and rhythm. Pulses normal. Respiratory: No respiratory distress. Breath sounds normal. Abdomen: Soft and nontender. Skin: Please refer the photograph for wound. Skin warm and dry. Normal skin color. Normal skin turgor. Extremities: No lower extremity edema. Moves all extremities against resistance. Neuro: No motor deficit. Moderate peripheral neuropathy per baseline. Cranial nerves 2-12 intact. Course Course Course Narrative: 71-year-old male presents with 2 wounds of left lower extremity. He does not present with any fevers, tachycardia, no indication of SIRS or sepsis. Does not recall any significant injury, does have peripheral neuropathy per baseline secondary to diabetes. No inguinal lymphadenopathy noted. No phlebitis. Culture taken of the distal wound. Will treat with antibiotics for Staph. It was noted that patient's blood sugar was 430 in the emergency department waiting room with a lactic acid of 2.5. He does report eating skittles, drinking soda, and eating salty crackers while waiting. Will give 2nd L of fluids, repeat lactic once fluids have been completed. 6:28 p.m. Repeat glucose 321, repeat lactic 1.3., will discharge home. Patient does understand need for antibiotics also if wounds are not healing well to present to wound care as he does have significant peripheral neuropathy and diabetes. MDM - Skin/Abscess/Foreign Bdy Differential Diagnosis Differential diagnosis: Likely abscess of skin or subcutaneous tissue, cellulitis, impetigo and contact dermatitis Medical Records Attestation: I reviewed the patient's medical records. Lab Data Attestation: I reviewed the patient's lab results. Result diagrams: 05/21/21 15:07 05/21/21 15:07 Labs: Lab Results 05/21/21 05/21/21 05/21/21 Range/Units 15:07 15:07 15:07 WBC 9.6 (4.8-10.8) X10*3/uL RBC 4.79 D (4.60-5.80) X10*6/uL Hgb 14.2 (14.0-18.0) g/dl Hct 42.7 (42-52) % MCV 89.1 (80-98) fL MCH 29.6 (27.0-33.0) pg MCHC 33.3 (31.0-36.0) g/dl RDW 12.6 (11.0-16.0) % Plt Count 192 (160-400) X10*3/uL MPV 8.6 L (9.4-12.4) fL Immature Gran % (Auto) 0.9 H (0.0-0.4) % Neut % (Auto) 64.8 (45-73) % Lymph % (Auto) 28.8 (20-40) % [place] % (Auto) 4.9 (2-11) % Eos % (Auto) 0.4 (0-4) % Baso % (Auto) 0.2 (0-2) % Lymph # (Auto) 2.8 (1.2-4.9) X10*3/uL [place] # (Auto) 0.5 (0.1-1.2) X10*3/uL Eos # (Auto) 0.0 (0.0-0.4) X10*3/uL Baso # (Auto) 0.0 (0.0-0.2) X10*3/uL Abs Immat Gran (auto) 0.09 H (0.00-0.03) X10*3/uL Absolute Neuts (auto) 6.2 (2.0-8.3) X10*3/uL Absolute Nucleated RBC 0.000 (0.0-0.012) X10*3/uL Nucleated RBC % (auto) 0.0 (0.0-0.2) /100WBC Sodium 135 (135-145) mmol/L Potassium 4.5 (3.3-5.1) mmol/L Chloride 96 (96-108) mmol/L Carbon Dioxide 29 (22-29) mmol/L Anion Gap 15 (12-20) BUN 18 H D (9-16) mg/dL Creatinine 1.19 (0.5-1.4) mg/dL Estim Creat Clear Calc 61.5 Estimated GFR > 60 POC Glucose (60-115) mg/dL Random Glucose 423 H* (60-115) mg/dL Lactic Acid 2.5 H* (0.5-2.0) mmol/L Lactic Acid Fup @ 2Hr (0.5-2.0) mmol/L Calcium 11.2 H (8.4-10.2) mg/dL Total Bilirubin 0.3 (0.0-1.0) mg/dL AST 10 (5-37) U/L ALT 19 (0-40) U/L Alkaline Phosphatase 146 H D (39-117) U/L Total Protein 7.2 (6.5-8.0) g/dL Albumin 4.2 D (3.5-5.0) g/dL 05/21/21 05/21/21 Range/Units 17:56 18:04 WBC (4.8-10.8) X10*3/uL RBC (4.60-5.80) X10*6/uL Hgb (14.0-18.0) g/dl Hct (42-52) % MCV (80-98) fL MCH (27.0-33.0) pg MCHC (31.0-36.0) g/dl RDW (11.0-16.0) % Plt Count (160-400) X10*3/uL MPV (9.4-12.4) fL Immature Gran % (Auto) (0.0-0.4) % Neut % (Auto) (45-73) % Lymph % (Auto) (20-40) % [place] % (Auto) (2-11) % Eos % (Auto) (0-4) % Baso % (Auto) (0-2) % Lymph # (Auto) (1.2-4.9) X10*3/uL [place] # (Auto) (0.1-1.2) X10*3/uL Eos # (Auto) (0.0-0.4) X10*3/uL Baso # (Auto) (0.0-0.2) X10*3/uL Abs Immat Gran (auto) (0.00-0.03) X10*3/uL Absolute Neuts (auto) (2.0-8.3) X10*3/uL Absolute Nucleated RBC (0.0-0.012) X10*3/uL Nucleated RBC % (auto) (0.0-0.2) /100WBC Sodium (135-145) mmol/L Potassium (3.3-5.1) mmol/L Chloride (96-108) mmol/L Carbon Dioxide (22-29) mmol/L Anion Gap (12-20) BUN (9-16) mg/dL Creatinine (0.5-1.4) mg/dL Estim Creat Clear Calc Estimated GFR POC Glucose 321 H (60-115) mg/dL Random Glucose (60-115) mg/dL Lactic Acid (0.5-2.0) mmol/L Lactic Acid Fup @ 2Hr 1.3 (0.5-2.0) mmol/L Calcium (8.4-10.2) mg/dL Total Bilirubin (0.0-1.0) mg/dL AST (5-37) U/L ALT (0-40) U/L Alkaline Phosphatase (39-117) U/L Total Protein (6.5-8.0) g/dL Albumin (3.5-5.0) g/dL Discharge Plan Discharge Clinical Impression: Infection, skin, staph Cellulitis Qualifiers: Site of cellulitis: extremity Site of cellulitis of extremity: lower extremity Laterality: left Qualified Code(s): L03.116 - Cellulitis of left lower limb Abscess of skin or subcutaneous tissue Qualifiers: Site of cutaneous abscess: extremity Site of cutaneous abscess of extremity: lower extremity Laterality: left Qualified Code(s): L02.416 - Cutaneous abscess of left lower limb Patient Disposition: Home, Self-Care Instructions: Cellulitis (ED), Abscess (ED) Additional Instructions: You were evaluated for wounds to the left lower extremity. Please take Keflex 500 mg every 6 hours for the next 7 days. Please take doxycycline 100 mg every 12 hours for the next 10 days. Use topical antibiotic twice a day. Please follow-up with primary care physician, if wounds do not improve in the next 3 days, please call Wound Care for consult. We provided a phone number for you for Wound care at [facility]. Thank you for choosing this emergency department for evaluation. Please follow-up with primary care physician as needed. Return to the emergency department for any new, concerning, or worsening symptoms. Prescriptions: New cephalexin 500 mg capsule 500 mg PO QID 7 Days Qty: 28 RF: 0 doxycycline monohydrate 100 mg capsule 100 mg PO BID 10 Days Qty: 20 RF: 0 mupirocin 2 % ointment 1 appl topical BID Qty: 22 RF: 0 No Action cyclobenzaprine 10 mg tablet 1 tab PO BEDTIME RF: 0 simvastatin 10 mg tablet 1 tab PO BEDTIME RF: 0 sumatriptan succinate 50 mg tablet 2 tab PO Q12H PRN (Reason: Migraine Headache) RF: 0 amlodipine 5 mg tablet 1 tab PO DAILY RF: 0 oxycodone-acetaminophen 5-325 mg tablet 1 tab PO NEEDED RF: 0 ropinirole 0.25 mg tablet 1 tab PO BEDTIME RF: 0 hydrochlorothiazide 12.5 mg capsule 1 cap PO DAILY RF: 0 Eliquis 5 mg tablet 1 tab PO BID RF: 0 acetaminophen [Acetaminophen Extra Strength] 500 mg Tablet 1,000 mg PO Q8-12H PRN (Reason: Pain) RF: 0 docusate sodium 100 mg Capsule 100 mg PO Q12H PRN (Reason: Constipation) RF: 0 cholecalciferol (vitamin D3) 50 mcg (2,000 unit) Capsule 50 mcg PO DAILY RF: 0 famotidine 20 mg Tablet 20 mg PO BID RF: 0 tamsulosin [Flomax] 0.4 mg Capsule 0.4 mg PO BEDTIME RF: 0 Fleet Enema 19-7 gram/118 mL Enema 118 ml [place] DAILY PRN (Reason: Constipation) RF: 0 gabapentin 300 mg Capsule 300 mg PO BEDTIME RF: 0 folic acid 1 mg Tablet 1 mg PO DAILY RF: 0 polyethylene glycol 3350 17 gram/dose Powder 17 g PO BID PRN (Reason: Constipation) RF: 0 duloxetine 30 mg Capsule, Delayed Rel Sprinkle 30 mg PO BID RF: 0 lactulose 10 gram/15 mL Solution 20 g PO DAILY PRN (Reason: Constipation) RF: 0 melatonin 3 mg Tablet 3 mg PO BEDTIME PRN (Reason: Insomnia) RF: 0 magnesium hydroxide [Milk of Magnesia] 400 mg/5 mL Suspension 30 ml PO DAILY PRN (Reason: Constipation) RF: 0 quetiapine 25 mg Tablet 25 mg PO DAILY PRN (Reason: Psychosis) RF: 0 thiamine HCl (vitamin B1) 100 mg Tablet 100 mg PO DAILY RF: 0 pyridoxine (vitamin B6) 50 mg Tablet 25 mg PO DAILY RF: 0 senna 8.6 mg Capsule 8.6 mg PO BEDTIME PRN (Reason: Constipation) RF: 0 gabapentin 300 mg Capsule 300 mg PO DAILY Qty: 30 RF: 0 duloxetine 60 mg Capsule,Delayed Release(Dr/Ec) 60 mg PO DAILY Qty: 30 RF: 0 hydrocodone-acetaminophen 5-325 mg tablet 1 tab PO Q8H PRN (Reason: pain) Qty: 8 RF: 0 Referrals: Wound Care [facility] [Outside] - 2 days (Suspected staph skin infection to left lower extremity) Interventions: ED Discharge Assessment Last Done: 05/21/21 18:38 Discharge Date/Time: 05/21/21 18:41
[2021-05-21] MEDS: 0.9 % Sodium Chloride 1,000 ML 999 ML IVCONT ×2 (16:35→17:06)
[2021-05-21] MEDS: cephALEXin 500 MG CAPSULE PO (16:41)
[2021-05-21] MEDS: Mupirocin 2 % Oint 22 GM TUBE 1 APPL TOPICAL (17:06)
[2021-05-21 17:18] LABS: Reflex Lactate? Lactic Acid Added
[2021-05-21 18:08] LABS: Glucose, Whole Blood 321 mg/dL (60-115)
[2021-05-21 18:25] LABS: ~Lactic Acid-LAB USE ONLY 1.3 mmol/L (0.5-2.0)
== END 2021-05-21 18:41 | disposition home or self-care (01) ==
PROVIDERS: Emergency Provider Internal Medicine; PCP Internal Medicine
DX: L03.116 Cellulitis of left lower limb (principal); L02.416 Cutaneous abscess of left lower limb; B95.8 Unspecified staphylococcus as the cause of diseases classified elsewhere; E11.65 Type 2 diabetes mellitus with hyperglycemia; E11.42 Type 2 diabetes mellitus with diabetic polyneuropathy
CPT/HCPCS: 36415; 80053; 82947; 83605; 85025; 87040; 87071; 87077; 87186; 87205; 96360; 99284; 99285